=== PATIENT | male | born 1955 | race Caucasian/White ===

== ENCOUNTER 2020-08-24 18:15 | Inpatient (IN) | payer MEDICARE, OTHER ==
[~2020-08-24] VITALS: Ht 182.9 cm; Wt 87.1 kg
--- NOTE | 2020-08-24 18:42 | NUR ---
PT IS IN ROOM #2B. DR HARTMANN EVALUATED THE PT.
[2020-08-24] MEDS ORDERED: THIA100T13 PO (18:59)
[2020-08-24] MEDS ORDERED: LEVE500T9 PO (18:59)
[2020-08-24] MEDS ORDERED: LORA-258 PO (18:59)
[2020-08-24] MEDS ORDERED: ACET-2154 PO (18:59)
[2020-08-24] MEDS ORDERED: PSYLLIUM PO (18:59)
[2020-08-24] MEDS ORDERED: FOLIC ACID PO (18:59)
[2020-08-24] MEDS ORDERED: BENA20TA9 PO (18:59)
[2020-08-24] MEDS ORDERED: METO25TA6 PO (18:59)
[2020-08-24] MEDS ORDERED: DOCU100C36 PO (18:59)
[2020-08-24] MEDS ORDERED: CHOL1CRY2 PO (18:59)
[2020-08-24] MEDS ORDERED: MULT-594 PO (18:59)
[2020-08-24] MEDS ORDERED: BISA10SU11 RC (18:59)
[2020-08-24] MEDS ORDERED: [UNRECOGNIZED DRUG - OTHER] PO (18:59)
[2020-08-24] MEDS ORDERED: RISP1TAB97 PO (18:59)
[2020-08-24] MEDS ORDERED: MAGN400O6 PO (19:00)
[2020-08-24] MEDS ORDERED: TRAZ-182 PO (19:00)
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
[2020-08-24 19:03] LABS: *BILIRUBIN,URIN NEGATIVE (NEGATIVE); *BLOOD, URINE NEGATIVE (NEGATIVE); *CLARITY,URINE CLEAR (CLEAR); *COLOR,URINE LIGHT YELLOW (YELLOW); *KETONES,URINE NEGATIVE (NEGATIVE); *UROBILINOGEN,URINE 0.2 E.U./dl (NORMAL); LEUKOCYTE ESTERASE ,URINE NEGATIVE (NEGATIVE); NITRITE, URINE NEGATIVE (NEGATIVE); PH,URINE 5.5 (5.0-8.0); UGLUCOSE NEGATIVE (NEGATIVE)
[2020-08-24 19:09] LABS: *AMPHETAMINE, URINE NEGATIVE (NEGATIVE); *CANNABINOID, URINE NEGATIVE (NEGATIVE); *COCCAINE, URINE NEGATIVE (NEGATIVE); *OPIATE, URINE NEGATIVE (NEGATIVE); *PHENCYCLIDINE SCREEN,URINE NEGATIVE (NEGATIVE)
[2020-08-24 19:46] LABS: BASOPHILS # (AUTO) 0.1 K/uL (0.0-8.0); BASOPHILS % (AUTO) 0.7 % (0.0-2.0); EOSINOPHILS # (AUTO) 0.2 K/uL (0.0-0.7); EOSINOPHILS % (AUTO) 2.1 % (0.0-7.0); HEMATOCRIT 38.5 % (36.7-47.1); HEMOGLOBIN 12.8 g/dL (12.5-16.3); LYMPHOCYTES % (AUTO) 35.3 % (20.5-51.5); MEAN CORPUSCULAR HEMOGLOBIN 30.6 uug (23.8-33.4); MEAN CORPUSCULAR HGB CONC 33 g/dL (32.5-36.3); MEAN CORPUSCULAR VOLUME 92.2 fL (73.0-96.2); MONOCYTES # (AUTO) 0.6 K/uL (2.0-10.0); NEUTROPHILS # (AUTO) 4.6 K/uL (1.8-8.9); NEUTROPHILS % (AUTO) 54.9 % (38.5-71.5); PLATELET COUNT (AUTO) 243 K/uL (152-348); RED BLOOD CELL COUNT(AUTO) 4.17 MIL/uL (4.06-5.63); WHITE BLOOD COUNT (AUTO) 8.4 K/uL (3.6-10.2)
[2020-08-24 19:52] LABS: CARBON DIOXIDE 22 mmol/L (21-32); CHLORIDE 100 mmol/L (98-107); CREATININE 0.8 mg/dL (0.6-1.3); GLUCOSE 140 mg/dL (74-106); POTASSIUM 3.5 mmol/L (3.5-5.1); UREA NITROGEN, BLOOD 8 mg/dL (7-18)
[2020-08-24 19:57] LABS: ETHANOL 68 MG/DL (0-0)
[2020-08-24 19:58] LABS: ALANINE AMINOTRANSFERASE 20 U/L (16-63); ALKALINE PHOSPHATASE 74 U/L (50-136); ASPARTATE AMINOTRANSFERASE 28 U/L (15-37); BILIRUBIN,DIRECT 0.1 mg/dL (0.0-0.2); BILIRUBIN,TOTAL 0.3 mg/dL (0.2-1.0); TOTAL PROTEIN, SERUM 7.7 g/dL (6.4-8.2)
[2020-08-24 19:59] LABS: ACETAMINOPHEN < 2.0 ug/mL (10-30)
[2020-08-24 20:06] LABS: THYROID STIMULATING HORMONE 0.142 mIU/mL (0.358-3.740)
--- NOTE | 2020-08-24 22:19 | NUR ---
Report given to receiving nurse. Awaiting OK to transfer patient over to Room 145-C.
[2020-08-24] MEDS ORDERED: ACETAMINOPHEN 325 MG TABLET PO PRN (23:45)
[2020-08-24] MEDS ORDERED: BISACODYL 10 MG SUPP.RECT RC PRN (23:45)
[2020-08-24] MEDS ORDERED: MAGNESIUM HYDROXIDE 30 ML LIQUID UDC PO PRN (23:45)
--- NOTE | 2020-08-24 23:45 | NUR ---
GPS: Admitted to unit earlier a 65 yr.old male under the care of Dr. De La Cruz/ who was medically cleared in our E.R. Pt.is on a 72 hour hold for DTO/GD. Pt.is alert to self only. Confused,disoriented and with poor insight to present situation. Unable to say reason for hospitalization. Refuses to answer most questions during initial interview. Personal belongings checked for any contraband. Oriented to surroundings,pt's advisement and pt's rights booklet given. Unit rules explained. Safe environment provided. Bed alarm on for safety while in bed.
[2020-08-25] MEDS ORDERED: ACETAMINOPHEN 325 MG TABLET PO PRN (00:30)
[2020-08-25] MEDS ORDERED: MAGNESIUM HYDROXIDE 30 ML LIQUID UDC PO PRN (00:30)
[2020-08-25] MEDS ORDERED: MAG HYDROX/AL HYDROX/SIMETH 30 ML LIQUID UDC PO PRN (00:30)
[2020-08-25] MEDS ORDERED: TEMAZEPAM 7.5 MG CAPSULE PO PRN (00:30)
[2020-08-25] MEDS ORDERED: LORAZEPAM 0.5 MG TABLET PO PRN (00:30)
[2020-08-25 02:03] VITALS: BP 117/48
[2020-08-25 07:30] VITALS: BP 121/67
[2020-08-25] MEDS ORDERED: DOCUSATE SODIUM 250 MG CAPSULE PO SCH (09:00)
[2020-08-25] MEDS ORDERED: FOLIC ACID 1 MG TABLET PO SCH (09:00)
[2020-08-25] MEDS ORDERED: CHOLECALCIFEROL 1,000 UNIT TABLET PO SCH (09:00)
[2020-08-25] MEDS ORDERED: MULTIVITAMINS,THERAPEUTIC TABLET PO SCH (09:00)
[2020-08-25] MEDS ORDERED: BENAZEPRIL HCL 20 MG TABLET PO SCH (09:00)
[2020-08-25] MEDS ORDERED: THIAMINE HCL 100 MG TABLET PO SCH (09:00)
--- NOTE | 2020-08-25 09:49 | NUR ---
Firearms Report: Building Stonecutter completed and submitted a DOJ firearms report for 5150 grave disability and danger to others certifications. A copy of report has been placed in patient chart.
[2020-08-25] MEDS: levETIRAcetam 500 MG TABLET PO SCH ×2 (10:00→18:48)
[2020-08-25] MEDS: METOPROLOL TARTRATE 25 MG TABLET PO SCH ×2 (10:03→18:49)
[2020-08-25] MEDS: PSYLLIUM SEED PACKET PO SCH ×2 (10:09→18:48)
--- NOTE | 2020-08-25 11:06 | NUR ---
MITCHEL Family Contact: SW called and left a voicemail for patient's sister, Cristela ([phone]) to discuss treatment and discharge plan.
--- NOTE | 2020-08-25 11:06 | NUR ---
MITCHEL Initial Discharge Plan: Patient currently resides at [facility] [address] [place] [address] ) ). MITCHEL spoke with Kelly Mcdonnell at facility who stated that they are requesting for alternate SNF placement for the patient, however, if it is not possible they will accept the patient back. MITCHEL left a voicemail for patient's sister, Cristela ([phone]) to discuss treatment and discharge plan. MITCHEL will continue to work with patient, family, and MD to ensure a safe and proper discharge plan.
--- NOTE | 2020-08-25 11:17 | NUR ---
MITCHEL Facility Contact: MITCHEL spoke with Kelly eduardo at [facility] ) who stated that she spoke with her DON and they stated that patient is welcome back to facility upon discharge and canceled their requested on alternate placement.
--- NOTE | 2020-08-25 11:25 | NUR ---
Brief Substance Abuse Intervention: Patient was provided with a brief substance abuse intervention for alcohol abuse and smoking cigarettes, and referred to the following substance abuse programs: [facility] Substance Abuse Self-helpline ([phone]); [facility] [address] [place] [address] ([phone]); [address] [address] ([phone]); [facility] ([phone]); [facility] ([phone]); [facility] ([phone]); [facility] ([phone]).
[2020-08-25] MEDS: GABAPENTIN 100 MG CAPSULE PO SCH ×2 (15:19→18:48)
[2020-08-25 16:00] VITALS: BP 113/54
[2020-08-25] MEDS ORDERED: risperiDONE-M 0.5 MG TAB.RAPDIS PO SCH ×2 (17:00→21:00)
--- NOTE | 2020-08-25 18:00 | NUR ---
Pt is being transferred to ER. Pt is to remain on hold as per dr. De La Cruz. Report given to BERNA Guzman. Pt's hold and an advisement is with the patient.
--- NOTE | 2020-08-25 18:17 | NUR ---
Around 1700 pt was found in his room, on the floor on his left side. Pt appeared having seizure activity. Area was cleared of objects around the patient. Rapid respond was called. Pt stopped having seizure activity, breathing was non labored, VS 126/73, hr 63, O2 97%. pt was able to nod "yes" but was not talking. pt was moving his hands and feet. blood sugar 103. Dr. De La Cruz was called order for EKG, CT scan of the brain and cervical spine was obtained. pt was taken to ER.
[2020-08-25 18:49] VITALS: BP 126/73
--- NOTE | 2020-08-26 08:58 | NUR ---
GPS Transfer and Discharge Plan Note: Patient was transferred from MHU to Medical Floor yesterday 08/25/20 due to having a seizure. Patient current discharge plan is to return to [facility] [address] [place] [address] ) ). SW spoke with Kelly Mcdonnell at facility who confirmed patient is welcome back once stable. Patient is alert and oriented x2-3 and is aware and agreeable with his discharge plan. Patient denies suicidal or homicidal ideation. Patient presented with depressed mood and congruent affect. Patient will follow up with psychiatrist Dr. De La Cruz and Hand Cloth Folder Dr. Esquivel at [facility] ([phone]). Patient was provided with a brief substance abuse intervention for alcohol and smoking and referred to the following substance abuse programs: [facility] Substance Abuse Self-helpline ([phone]); [facility] [address] [place] [address] ([phone]); [facility] [address] [facility] [address] ([phone]); [facility] ([phone]); [facility] ([phone]); [facility] ([phone]); [facility] ([phone]). Patient has a sister, Cristela ([phone]) and this SW left a voicemail for her, unable to reach.
== END 2020-08-25 18:30 | disposition short-term general hospital (02) | DRG 885 ==
LOC: ER 18:20 → GPS 22:40
PROVIDERS: ADMIT Psychiatry & Neurology Psychosomatic Medicine; ATTEND Nurse Practitioner Acute Care
DX: F29 Unspecified psychosis not due to a substance or known physiological condition (principal); F01.50 Vascular dementia, unspecified severity, without behavioral disturbance, psychotic disturbance, mood disturbance, and anxiety; G92 Toxic encephalopathy; D64.9 Anemia, unspecified; G40.909 Epilepsy, unspecified, not intractable, without status epilepticus; E05.90 Thyrotoxicosis, unspecified without thyrotoxic crisis or storm; F10.10 Alcohol abuse, uncomplicated; J44.9 Chronic obstructive pulmonary disease, unspecified; I10 Essential (primary) hypertension; K70.30 Alcoholic cirrhosis of liver without ascites; F25.9 Schizoaffective disorder, unspecified; F32.9 Major depressive disorder, single episode, unspecified; Z20.822 Contact with and (suspected) exposure to COVID-19; Y90.3 Blood alcohol level of 60-79 mg/100 ml
CPT/HCPCS: 36415; 70450; 71045; 72125; 84443; 85025; 93005; G0480

== ENCOUNTER 2020-08-25 17:27 | Inpatient (IN) | payer MEDICARE, OTHER ==
[~2020-08-25] VITALS: Ht 182.9 cm; Wt 88.6 kg
[~2020-08-25 17:27] MED LIST: ACET-2154 PO; BENA20TA9 PO; BISA10SU11 RC; CHOL1CRY2 PO; DOCU100C36 PO; FOLIC ACID PO; LEVE500T9 PO; LORA-258 PO; MAGN400O6 PO; METO25TA6 PO; MULT-594 PO; PSYLLIUM PO; RISP1TAB97 PO; THIA100T13 PO; TRAZ-182 PO; [UNRECOGNIZED DRUG - OTHER] PO
--- NOTE | 2020-08-25 17:36 | NUR ---
pt came from mhu unit, s/p witnessed seizure while the pt was found on the floor. in er, no sign of distress, pt reluctant to answer questions, vss, c-spine collar on already.
--- NOTE | 2020-08-25 17:45 | NUR ---
c-spine collar removed per md order, based on the ct results.
[2020-08-25 17:57] LABS: BASOPHILS # (AUTO) 0.1 K/uL (0.0-8.0); BASOPHILS % (AUTO) 0.6 % (0.0-2.0); EOSINOPHILS # (AUTO) 0.1 K/uL (0.0-0.7); EOSINOPHILS % (AUTO) 1.1 % (0.0-7.0); HEMATOCRIT 40.7 % (36.7-47.1); HEMOGLOBIN 13.2 g/dL (12.5-16.3); LYMPHOCYTES % (AUTO) 22.3 % (20.5-51.5); MEAN CORPUSCULAR HEMOGLOBIN 30.4 uug (23.8-33.4); MEAN CORPUSCULAR HGB CONC 32 g/dL (32.5-36.3); MEAN CORPUSCULAR VOLUME 93.8 fL (73.0-96.2); MONOCYTES % (AUTO) 7.6 % (0.0-11.0); NEUTROPHILS # (AUTO) 9.1 K/uL (1.8-8.9); NEUTROPHILS % (AUTO) 68.4 % (38.5-71.5); PLATELET COUNT (AUTO) 244 K/uL (152-348); RED BLOOD CELL COUNT(AUTO) 4.34 MIL/uL (4.06-5.63); WHITE BLOOD COUNT (AUTO) 13.3 K/uL (3.6-10.2)
[2020-08-25 18:02] LABS: CARBON DIOXIDE 16 mmol/L (21-32); CHLORIDE 96 mmol/L (98-107); CREATININE 1.1 mg/dL (0.6-1.3); GLUCOSE 121 mg/dL (74-106); POTASSIUM 4.1 mmol/L (3.5-5.1); UREA NITROGEN, BLOOD 13 mg/dL (7-18)
[2020-08-25 18:04] LABS: ETHANOL < 3 MG/DL (0-0)
[2020-08-25 18:08] LABS: ALANINE AMINOTRANSFERASE 17 U/L (16-63); ALKALINE PHOSPHATASE 78 U/L (50-136); ASPARTATE AMINOTRANSFERASE 29 U/L (15-37); BILIRUBIN,DIRECT 0.1 mg/dL (0.0-0.2); BILIRUBIN,TOTAL 0.4 mg/dL (0.2-1.0); TOTAL PROTEIN, SERUM 7.8 g/dL (6.4-8.2)
[2020-08-25] MEDS ORDERED: IV NORMAL SALINE 1000 ML BAG IV ONE (18:15)
[2020-08-25 18:16] LABS: PHENOBARBITAL < 1.0 ug/mL (15.0-39.0); PHENYTOIN (DILANTIN) < 0.5 ug/mL (10.0-20.0); VALPROIC ACID < 3 ug/mL (50-100)
--- NOTE | 2020-08-25 18:33 | NUR ---
pt refuses dinner, but had a cup of apple juice.
--- NOTE | 2020-08-25 19:00 | NUR ---
Assumed care of patient from day shift BERNA Mccall. Patient lying in bed. Calm and pleasant. No behevioral issues noted at this time. Seizure precaution observed.
--- NOTE | 2020-08-25 19:42 | NUR ---
Report given to Tele unit BERNA Andrade. Patient will be admitted under FINISH MOLDER Christine Chris Seizure disorder in room 301B. Belonging list done.
--- NOTE | 2020-08-25 20:15 | NUR ---
Received patient from ED via gurney. Patient admitted for seizure under Jessica King NP. Patient is AAOx1-2, somewhat verbal when conversation is initiated. No s/s of acute distress noted at this time. Pt on RA denies SOB and pain. Right AC IV infiltrated and will attempt to place a new access. Seizure precautions in place, side rails padded, and suction available at bedside. Sitter at bedside for safety.
[2020-08-25 20:33] VITALS: BP 122/68
[2020-08-25] MEDS ORDERED: ZOLPIDEM 5 MG TABLET PO PRN (20:45)
[2020-08-25] MEDS ORDERED: Z GUARD REMEDY PASTE 57 GM TUBE TOP PRN (20:45)
[2020-08-25] MEDS ORDERED: MAGNESIUM HYDROXIDE 30 ML LIQUID UDC PO PRN (20:45)
[2020-08-25] MEDS ORDERED: HYDROCODONE/APAP 5-325MG TABLET PO PRN (20:45)
[2020-08-25] MEDS ORDERED: ACETAMINOPHEN 325 MG TABLET PO PRN (20:45)
[2020-08-25] MEDS ORDERED: ONDANSETRON 4 MG/2 ML VIAL IV PRN (20:45)
[2020-08-25] MEDS ORDERED: LORAZEPAM 2 MG/1 ML VIAL IV PRN (20:45)
[2020-08-25] MEDS ORDERED: levETIRAcetam IV 1,000 MG in IV DEXTROSE 5% 100 ML IV SCH (21:00)
[2020-08-25] MEDS: ENOXAPARIN SODIUM 40 MG/0.4 ML DISP.SYRIN SQ SCH (22:39)
[2020-08-26 00:15] VITALS: BP 133/64
[2020-08-26] MEDS: IV NS 1000 ML 1,000 ML IV PRN ×3 (00:53→23:29)
[2020-08-26 04:18] VITALS: BP 142/62
--- NOTE | 2020-08-26 07:15 | NUR ---
NO IV ACCESS PER NIGHT NURSE Pt pulled out his IV lines several times during the time, hard stick, took 3x to draw labs this am. RN classified advertising supervisor notified at this time. Dr. Sanz made aware that pt's Keppra will be missed at 0900.
--- NOTE | 2020-08-26 07:45 | NUR ---
Per BERNA Maldonado Secretary To The Vice President, midline will be inserted at 1300 today.
--- NOTE | 2020-08-26 09:03 | NUR ---
GPS Transfer and Discharge Plan Note: Patient was transferred from MHU to Medical Floor yesterday 08/25/20 due to having a seizure. Patient current discharge plan is to return to [facility] [address] [place] [address] ) ). SW spoke with Kelly Mcdonnell at facility who confirmed patient is welcome back once stable. Patient is alert and oriented x2-3 and is aware and agreeable with his discharge plan. Patient denies suicidal or homicidal ideation. Patient presented with depressed mood and congruent affect. Patient will follow up with psychiatrist Dr. De La Cruz and Patternmaker Plaster And Plastic Dr. Esquivel at [facility] ([phone]). Patient was provided with a brief substance abuse intervention for alcohol and smoking and referred to the following substance abuse programs: [facility] Substance Abuse Self-helpline ([phone]); [facility] [address] [place] [address] ([phone]); [facility] [address] [facility] [address] ([phone]); [facility] ([phone]); [facility] ([phone]); [facility] ([phone]); [facility] ([phone]). Patient has a sister, Cristela ([phone]) and this SW left a voicemail for her, unable to reach.
--- NOTE | 2020-08-26 09:09 | NUR ---
Verified with pharmacy that it is okay to give Keppra late after midline insertion at 1300, and keep same schedule.
--- NOTE | 2020-08-26 09:41 | NUR ---
Pt continues to be resting in bed, with no signs of acute distress. NO verbalizations of SI.HI. No unnecessary cords or wires near bed. Pt with no episodes of aggressive behavior, cooperative with care. Pending midline insertion. water attendant at bedside.
--- NOTE | 2020-08-26 11:00 | NUR ---
Per pharmacmy, route of administration for Keppra changed to PO.
[2020-08-26] MEDS: levETIRAcetam 500 MG TABLET PO SCH ×2 (11:34→21:57)
[2020-08-26 12:00] VITALS: BP 119/67
--- NOTE | 2020-08-26 12:45 | NUR ---
Midline RN able to insert Midline on LORRIE 18 G, flushing well. No signs of extravasation or infiltration. Dressing clean, dry and intact.
--- NOTE | 2020-08-26 12:58 | NUR ---
Pt is resting at this time, continued to be on 5150 hold until 08/27/20 1701 for GD and DTO. Patient is AAOx1-3, verbal and cooperative most of time. He does have occasional episodes of "snapping" and being slightly verbally abusive to RN and easily irritated. IVF now infusing as ordered on R UA 18 G midline. No s/s of acute distress noted at this time. Pt on RA denies SOB and pain. Seizure precautions in place, side rails padded, and suction available at bedside. linen room attendant at bedside for safety.
[2020-08-26 15:42] LABS: BASOPHILS % (AUTO) 0.5 % (0.0-2.0); EOSINOPHILS # (AUTO) 0.2 K/uL (0.0-0.7); HEMATOCRIT 39.4 % (36.7-47.1); HEMOGLOBIN 13.3 g/dL (12.5-16.3); LYMPHOCYTES % (AUTO) 22.9 % (20.5-51.5); MEAN CORPUSCULAR HEMOGLOBIN 31.3 uug (23.8-33.4); MEAN CORPUSCULAR HGB CONC 34 g/dL (32.5-36.3); MEAN CORPUSCULAR VOLUME 92.7 fL (73.0-96.2); MONOCYTES # (AUTO) 0.6 K/uL (2.0-10.0); MONOCYTES % (AUTO) 6.8 % (0.0-11.0); NEUTROPHILS # (AUTO) 5.9 K/uL (1.8-8.9); NEUTROPHILS % (AUTO) 67.8 % (38.5-71.5); PLATELET COUNT (AUTO) 241 K/uL (152-348); RED BLOOD CELL COUNT(AUTO) 4.25 MIL/uL (4.06-5.63); WHITE BLOOD COUNT (AUTO) 8.7 K/uL (3.6-10.2)
--- NOTE | 2020-08-26 15:52 | NUR ---
Pt started to be confused and started to act out, yelling at staff and demanding alcohol be given to him. Ativan 2 mg IV Push given and s/w Dr De La Cruz. Slightly effective. Dr De La Cruz assessed patient via telehealth and will put in orders.
[2020-08-26 15:58] LABS: CREATININE 0.9 mg/dL (0.6-1.3); MAGNESIUM 1.9 mg/dL (1.8-2.4); POTASSIUM 3.8 mmol/L (3.5-5.1)
[2020-08-26 16:00] VITALS: BP 130/62
[2020-08-26] MEDS ORDERED: GABAPENTIN 100 MG CAPSULE PO SCH (17:00)
[2020-08-26] MEDS: risperiDONE 0.5 MG TABLET PO SCH ×2 (17:13→21:00)
--- NOTE | 2020-08-26 20:00 | NUR ---
Received patient asleep in bed, arousable to deep touch. AAOx3. No s/s of acute distress noted at this time. Pt on RA denies SOB and pain. Right upper arm midline patent and intact. Sitter at bedside. Patient currently on 5150 hold for GD and DTO, expires 08/27 @ 1701. Patient is currently pleasant and engages in conversation when approached. Denies SI/HI. Safety measures and Seizure precautions in place.
[2020-08-26 20:07] VITALS: BP 145/72
[2020-08-26] MEDS: ENOXAPARIN SODIUM 40 MG/0.4 ML DISP.SYRIN SQ SCH (21:08)
[2020-08-26] MEDS ORDERED: MAGNESIUM HYDROXIDE 30 ML LIQUID UDC PO PRN (21:15)
[2020-08-26] MEDS ORDERED: BISACODYL 10 MG SUPP.RECT RC PRN (21:15)
[2020-08-26] MEDS ORDERED: ACETAMINOPHEN 325 MG TABLET PO SCH (21:15)
[2020-08-27] VITALS: BP 114/55
[2020-08-27 04:00] VITALS: BP 113/65
--- NOTE | 2020-08-27 06:09 | NUR ---
Patient slept 9 hours. No acute changes noted. VSS. Sitter remains at bedside.
[2020-08-27] MEDS ORDERED: METOPROLOL TARTRATE 25 MG TABLET PO SCH (09:00)
[2020-08-27] MEDS ORDERED: BENAZEPRIL HCL 20 MG TABLET PO SCH (09:00)
[2020-08-27] MEDS ORDERED: THIAMINE HCL 100 MG TABLET PO SCH (09:00)
[2020-08-27] MEDS ORDERED: levETIRAcetam 500 MG TABLET PO SCH (09:00)
[2020-08-27] MEDS ORDERED: CHOLECALCIFEROL 1,000 UNIT TABLET PO SCH (09:00)
[2020-08-27] MEDS ORDERED: DOCUSATE SODIUM 100 MG/10 ML LIQUID UDC PO SCH (09:00)
[2020-08-27] MEDS ORDERED: FOLIC ACID 1 MG TABLET PO SCH (09:00)
[2020-08-27] MEDS ORDERED: DOCUSATE SODIUM 100 MG CAPSULE PO SCH (09:00)
[2020-08-27] MEDS: METOPROLOL TARTRATE 25 MG TABLET PO SCH ×2 (09:00→20:32)
[2020-08-27] MEDS ORDERED: MULTIVITAMINS,THERAPEUTIC TABLET PO SCH (09:00)
[2020-08-27] MEDS: PSYLLIUM SEED PACKET PO SCH ×2 (09:23→17:20)
[2020-08-27] MEDS: levETIRAcetam 500 MG TABLET PO SCH ×2 (09:23→20:27)
[2020-08-27] MEDS: risperiDONE 0.5 MG TABLET PO SCH ×4 (09:23→20:27)
--- NOTE | 2020-08-27 10:00 | NUR ---
Received pt in assigned room in bed, A&Ox3, calm upon approach at this time, able to verbalize needs. No acute distress, no SOB. VSS at this time. Pt denies pain at this time. Due medication administered per order, pt adherent to medication regimen, no a/r noted. Right UA Midline patent and intact. Pt denies SI/HI/AH/VH. Pt able to verbally CFS. When asked how he was feeling, pt stated "Groovy". Safety measures and fall precautions in place. Call light and belongings within reach. Will continue to monitor. Addendum: 08/27/20 at 1639 by ERICKA FORTE RN RN Sitter at bedside for safety. Seizure precautions in place.
[2020-08-27 11:12] VITALS: BP 91/70
[2020-08-27] MEDS ORDERED: LORAZEPAM 1 MG TABLET PO PRN (13:30)
--- NOTE | 2020-08-27 13:45 | NUR ---
Dr. Lopez visited pt at bedside this afternoon with new order, will carry out.
--- NOTE | 2020-08-27 14:30 | NUR ---
Pt noted with episode of agitation and verbal aggression towards staff. Pt started yelling obscenities and demanded "a cold beer". This creative services writer and sitter explained to pt that pt is in a hospital and beer is not served here. Redirection attempts unsuccessful at this time. PRN Ativan administered per order, will monitor for effectiveness. Sitter at bedside. Seizure precautions in place. Continue to monitor.
[2020-08-27] MEDS ORDERED: RISP0.5T5 PO (15:33)
[2020-08-27] MEDS ORDERED: LEVE500T9 PO (15:33)
[2020-08-27 16:20] VITALS: BP 122/58
[2020-08-27] MEDS: IV NS 1000 ML 1,000 ML IV PRN (17:28)
--- NOTE | 2020-08-27 19:00 | NUR ---
EOSS: Pt in assigned room in bed, no acute distress, denies pain/discomfort at this time. VSS. Per Dr. Lopez, pt to be discharged to [facility] Mental Health Unit on a voluntary basis. Pt aware and willing, pt signed Voluntary Admission Behavioral Health form. Per Dr. Sanz, pt cleared medically for discharge. Pt remained calm for remainder of shift, sitter at bedside for pt safety, seizure precautions maintained. Safety measures and fall precautions maintained. Will endorse care to shiftman nurse.
--- NOTE | 2020-08-27 19:00 | NUR ---
RECEIVED PATIENT IN BED ALERT AWAKE, NO COMPLAIN OF PAIN, TELE MONITOR SINUS SHAHID. PATIENT CALM AND COOPERATIVE WITH CARE, CONT 1;1 SITTER. V/S STABLE.
[2020-08-27 20:29] VITALS: BP 151/68
[2020-08-27 20:32] VITALS: BP 151/68
[2020-08-27] MEDS: ENOXAPARIN SODIUM 40 MG/0.4 ML DISP.SYRIN SQ SCH (20:33)
--- NOTE | 2020-08-27 21:27 | NUR ---
PATIENT WAS DISCHARGE TO MHU UNIT, REPORT GIVEN TO LANG CORONEL, TOOK ALL BELONINGS, PATIENT IS IN FAIR BUT STABLE CONDITION. PATIENT REFUSED LOVENOX, AND METOPROLOL WAS HELD HR. 51.
== END 2020-08-27 21:25 | DRG 101 ==
LOC: ER 17:29 → TELE3 19:45
PROVIDERS: ADMIT Family Medicine; ATTEND Family Medicine
PROC: 05H533Z Insertion of Infusion Device into Right Subclavian Vein, Percutaneous Approach (ICD-10-PCS; principal; 2020-08-26)
PROC: B546ZZA Ultrasonography of Right Subclavian Vein, Guidance (ICD-10-PCS; 2020-08-26)
DX: G40.909 Epilepsy, unspecified, not intractable, without status epilepticus (principal); E87.2 Acidosis; E87.1 Hypo-osmolality and hyponatremia; F25.9 Schizoaffective disorder, unspecified; D72.829 Elevated white blood cell count, unspecified; E86.1 Hypovolemia; F01.50 Vascular dementia, unspecified severity, without behavioral disturbance, psychotic disturbance, mood disturbance, and anxiety; F32.9 Major depressive disorder, single episode, unspecified; I10 Essential (primary) hypertension; J44.9 Chronic obstructive pulmonary disease, unspecified; F10.10 Alcohol abuse, uncomplicated; K70.30 Alcoholic cirrhosis of liver without ascites; G31.2 Degeneration of nervous system due to alcohol; Y90.0 Blood alcohol level of less than 20 mg/100 ml
CPT/HCPCS: 36415; 80164; 80184; 83735; 84100; 84443; 85025; 85730; 93005; A4663; G0378; G0480; J1650; J1953; J2060; J7030; J7060

== ENCOUNTER 2020-08-27 21:52 | Inpatient (IN) | payer MEDICARE, OTHER ==
[~2020-08-27] VITALS: Ht 182.9 cm; Wt 87.5 kg
[~2020-08-27 21:52] MED LIST changes: -LORA-258 PO; +RISP0.5T5 PO; -RISP1TAB97 PO; -TRAZ-182 PO
[2020-08-27] MEDS ORDERED: MAGNESIUM HYDROXIDE 30 ML LIQUID UDC PO PRN (22:00)
[2020-08-27] MEDS ORDERED: MAG HYDROX/AL HYDROX/SIMETH 30 ML LIQUID UDC PO PRN (22:00)
--- NOTE | 2020-08-27 23:00 | NUR ---
Received patient from [facility] 3rd floor via wheelchair; patient reoriented to room and policies; safety maintained; assisted to meet hygiene needs; bed alarm on; plan of care initiated.
--- NOTE | 2020-08-28 05:00 | NUR ---
Dr Shine aware of admission and will reconcile meds.
--- NOTE | 2020-08-28 06:32 | NUR ---
pt slept well; pt slept for 6.3 hours. safety maintained; continue plan of care
[2020-08-28] MEDS ORDERED: BISACODYL 10 MG SUPP.RECT RC PRN (07:15)
[2020-08-28 07:30] VITALS: BP 131/65
[2020-08-28 07:30] LABS: BILIRUBIN,TOTAL 0.3 mg/dL (0.2-1.0); CREATININE 0.8 mg/dL (0.6-1.3); TOTAL PROTEIN, SERUM 6.9 g/dL (6.4-8.2)
[2020-08-28] MEDS: DOCUSATE SODIUM 250 MG CAPSULE PO SCH (09:48)
[2020-08-28] MEDS: PSYLLIUM SEED PACKET PO SCH ×2 (09:49→18:24)
[2020-08-28] MEDS: levETIRAcetam 500 MG TABLET PO SCH ×2 (09:49→20:43)
[2020-08-28] MEDS: MULTIVITAMINS,THERAPEUTIC TABLET PO SCH (09:49)
[2020-08-28] MEDS: CHOLECALCIFEROL 1,000 UNIT TABLET PO SCH (09:50)
[2020-08-28] MEDS: FOLIC ACID 1 MG TABLET PO SCH (09:50)
[2020-08-28] MEDS: THIAMINE HCL 100 MG TABLET PO SCH (09:50)
[2020-08-28] MEDS: METOPROLOL TARTRATE 25 MG TABLET PO SCH ×2 (13:22→18:24)
[2020-08-28] MEDS: BENAZEPRIL HCL 20 MG TABLET PO SCH (13:22)
[2020-08-28 15:26] VITALS: BP 119/68
[2020-08-28 20:00] VITALS: BP 172/68
[2020-08-28] MEDS: LORAZEPAM 1 MG TABLET PO PRN (20:43)
[2020-08-28] MEDS ORDERED: risperiDONE 0.25 MG TABLET PO SCH ×2 (21:00→21:52)
[2020-08-28] MEDS: TEMAZEPAM 7.5 MG CAPSULE PO PRN (23:54)
--- NOTE | 2020-08-29 06:30 | NUR ---
Composite Engineer received patient last night , awake and alert standing in the doorway of his room. This patient was isolative and unable to engage in any meaningful conversation. All questions were met with simple yes or no answer. Patient was restless and sitting in a dark corner of his room for a long period of time. Composite Engineer provided medications that were ordered , plus sleeping pill per patients request. Patient slept 6.45 hours. Continuing to monitor patient for safety and seizure precautions are in place. No behavioral issues at this time.
[2020-08-29 06:54] LABS: BASOPHILS # (AUTO) 0.1 K/uL (0.0-8.0); BASOPHILS % (AUTO) 0.7 % (0.0-2.0); EOSINOPHILS # (AUTO) 0.4 K/uL (0.0-0.7); EOSINOPHILS % (AUTO) 3.3 % (0.0-7.0); HEMATOCRIT 42.6 % (36.7-47.1); HEMOGLOBIN 14.3 g/dL (12.5-16.3); LYMPHOCYTES % (AUTO) 27.7 % (20.5-51.5); MEAN CORPUSCULAR HEMOGLOBIN 31.1 uug (23.8-33.4); MEAN CORPUSCULAR HGB CONC 34 g/dL (32.5-36.3); MEAN CORPUSCULAR VOLUME 92.9 fL (73.0-96.2); MONOCYTES # (AUTO) 0.8 K/uL (2.0-10.0); MONOCYTES % (AUTO) 7.7 % (0.0-11.0); NEUTROPHILS # (AUTO) 6.5 K/uL (1.8-8.9); NEUTROPHILS % (AUTO) 60.6 % (38.5-71.5); PLATELET COUNT (AUTO) 230 K/uL (152-348); RED BLOOD CELL COUNT(AUTO) 4.59 MIL/uL (4.06-5.63); WHITE BLOOD COUNT (AUTO) 10.8 K/uL (3.6-10.2)
[2020-08-29 07:14] LABS: THYROID STIMULATING HORMONE 0.832 mIU/mL (0.358-3.740)
[2020-08-29 07:30] VITALS: BP 116/46
[2020-08-29 07:38] LABS: BILIRUBIN,TOTAL 0.5 mg/dL (0.2-1.0); CREATININE 0.7 mg/dL (0.6-1.3); PHOSPHOROUS 3.6 mg/dL (2.5-4.9); POTASSIUM 4.3 mmol/L (3.5-5.1); TOTAL PROTEIN, SERUM 7.5 g/dL (6.4-8.2)
[2020-08-29 08:00] VITALS: BP 116/46
[2020-08-29] MEDS: DOCUSATE SODIUM 250 MG CAPSULE PO SCH (08:25)
[2020-08-29] MEDS: levETIRAcetam 500 MG TABLET PO SCH ×2 (08:26→21:11)
[2020-08-29] MEDS: CHOLECALCIFEROL 1,000 UNIT TABLET PO SCH (08:26)
[2020-08-29] MEDS: risperiDONE 0.5 MG TABLET PO SCH ×4 (08:27→21:12)
[2020-08-29] MEDS: FOLIC ACID 1 MG TABLET PO SCH (08:27)
[2020-08-29] MEDS: THIAMINE HCL 100 MG TABLET PO SCH (08:27)
[2020-08-29] MEDS: LORAZEPAM 1 MG TABLET PO PRN (08:27)
[2020-08-29] MEDS: PSYLLIUM SEED PACKET PO SCH ×2 (08:28→17:13)
[2020-08-29] MEDS: MULTIVITAMINS,THERAPEUTIC TABLET PO SCH (08:29)
[2020-08-29] MEDS: METOPROLOL TARTRATE 25 MG TABLET PO SCH ×2 (08:55→17:00)
[2020-08-29] MEDS: BENAZEPRIL HCL 20 MG TABLET PO SCH (08:56)
[2020-08-29 16:00] VITALS: BP 107/58
[2020-08-29 20:00] VITALS: BP 135/59
[2020-08-29] MEDS: TEMAZEPAM 7.5 MG CAPSULE PO PRN (21:12)
[2020-08-30] MEDS: LORAZEPAM 1 MG TABLET PO PRN (01:43)
[2020-08-30] MEDS: ACETAMINOPHEN 325 MG TABLET PO PRN (01:44)
--- NOTE | 2020-08-30 06:34 | NUR ---
Received patient up in the day room at the beginning of the shift. Awake and alert but slightly confused. As the night progressed, patients behavior became unpredictable and bizarre. Staff found patient laying on the floor in the day room with the blankets off of his bed, stating " I am going to sleep on the floor tonight. I like to sleep here". Mud Mixer reoriented patient to the situation and redirected him back to his bed. The patient was restless and requested medication to assist him to sleep. Total sleep hours were 3.30. Mud Mixer provided snacks and monitored patient for safety during the shift.
[2020-08-30 07:30] VITALS: BP 128/74
[2020-08-30 07:51] LABS: BASOPHILS # (AUTO) 0.1 K/uL (0.0-8.0); BASOPHILS % (AUTO) 0.5 % (0.0-2.0); EOSINOPHILS # (AUTO) 0.3 K/uL (0.0-0.7); EOSINOPHILS % (AUTO) 2.4 % (0.0-7.0); HEMATOCRIT 40.6 % (36.7-47.1); HEMOGLOBIN 13.5 g/dL (12.5-16.3); LYMPHOCYTES # (AUTO) 3.2 K/uL (20.0-40.0); LYMPHOCYTES % (AUTO) 30.3 % (20.5-51.5); MEAN CORPUSCULAR HEMOGLOBIN 30.9 uug (23.8-33.4); MEAN CORPUSCULAR HGB CONC 33 g/dL (32.5-36.3); MONOCYTES # (AUTO) 0.9 K/uL (2.0-10.0); MONOCYTES % (AUTO) 8.9 % (0.0-11.0); NEUTROPHILS # (AUTO) 6.1 K/uL (1.8-8.9); NEUTROPHILS % (AUTO) 57.9 % (38.5-71.5); PLATELET COUNT (AUTO) 220 K/uL (152-348); RED BLOOD CELL COUNT(AUTO) 4.36 MIL/uL (4.06-5.63); WHITE BLOOD COUNT (AUTO) 10.5 K/uL (3.6-10.2)
[2020-08-30 07:59] LABS: CREATININE 0.8 mg/dL (0.6-1.3); POTASSIUM 4.9 mmol/L (3.5-5.1)
--- NOTE | 2020-08-30 08:00 | NUR ---
received report from BERNA Escobar. All questions, comments, and concerns were addressed. Received patient resting quietly in his assigned bed. bed is in low and locked position. patient is arousable to name.
[2020-08-30] MEDS: CHOLECALCIFEROL 1,000 UNIT TABLET PO SCH (09:11)
[2020-08-30] MEDS: risperiDONE 0.5 MG TABLET PO SCH ×4 (09:11→20:07)
[2020-08-30] MEDS: DOCUSATE SODIUM 250 MG CAPSULE PO SCH (09:11)
[2020-08-30] MEDS: METOPROLOL TARTRATE 25 MG TABLET PO SCH ×2 (09:12→16:06)
[2020-08-30] MEDS: MULTIVITAMINS,THERAPEUTIC TABLET PO SCH (09:12)
[2020-08-30] MEDS: PSYLLIUM SEED PACKET PO SCH ×2 (09:12→16:06)
[2020-08-30] MEDS: BENAZEPRIL HCL 20 MG TABLET PO SCH (09:12)
[2020-08-30] MEDS: FOLIC ACID 1 MG TABLET PO SCH (09:12)
[2020-08-30] MEDS: levETIRAcetam 500 MG TABLET PO SCH ×2 (09:12→20:07)
[2020-08-30] MEDS: THIAMINE HCL 100 MG TABLET PO SCH (09:12)
--- NOTE | 2020-08-30 10:01 | NUR ---
Brief Substance Abuse Intervention: Patient was provided with a brief substance abuse intervention for alcohol abuse and smoking cigarettes, and referred to the following substance abuse programs: [facility] Substance Abuse Self-helpline ([phone]); [facility] [address] [place] [address] ([phone]); [address] [address] ([phone]); [facility] ([phone]); [facility] ([phone]); [facility] ([phone]); [facility] ([phone]).
--- NOTE | 2020-08-30 10:02 | NUR ---
MITCHEL Initial Discharge Plan: Patient currently resides at [facility] [address] [place] [address] ) ). MITCHEL spoke with Kelly Mcdonnell at facility who stated that they will accept the patient back upon discharge. MITCHEL will continue to work with patient, family, and MD to ensure a safe and proper discharge plan.
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
--- NOTE | 2020-08-30 10:40 | NUR ---
patient is alert and oriented. he is calm, cooperative, and has pleasant interaction with staff. patient is adherent with medication, no adverse reaction noted. dressed appropriately in his assigned clothing. denies SI/HI, denies AH/VH. patient is able to tolerate food and fluids. uses a front wheel walker for ambulation. patient encouraged to participate in the unit therapeutic milieu and groups.
[2020-08-30] MEDS ORDERED: TEMAZEPAM 15 MG CAPSULE PO PRN (11:45)
[2020-08-30 15:13] VITALS: BP 100/54
[2020-08-30 20:32] VITALS: BP 111/56
--- NOTE | 2020-08-31 06:31 | NUR ---
GPS: Remain calm and cooperative with meds and care. This patient was isolative and unable to engage in any meaningful conversation. All questions were met with simple yes or no answer, plus sleeping pill per patients request. Patient slept 5 hours. Continuing to monitor patient for safety and seizure precautions are in place. No behavioral issues at this time.
[2020-08-31 07:30] VITALS: BP 102/57
[2020-08-31] MEDS: FOLIC ACID 1 MG TABLET PO SCH (08:23)
[2020-08-31] MEDS: CHOLECALCIFEROL 1,000 UNIT TABLET PO SCH (08:23)
[2020-08-31] MEDS: levETIRAcetam 500 MG TABLET PO SCH ×2 (08:23→20:37)
[2020-08-31] MEDS: DOCUSATE SODIUM 250 MG CAPSULE PO SCH (08:23)
[2020-08-31] MEDS: METOPROLOL TARTRATE 25 MG TABLET PO SCH ×2 (08:24→16:20)
[2020-08-31] MEDS: THIAMINE HCL 100 MG TABLET PO SCH (08:24)
[2020-08-31] MEDS: BENAZEPRIL HCL 20 MG TABLET PO SCH (08:24)
[2020-08-31] MEDS: MULTIVITAMINS,THERAPEUTIC TABLET PO SCH (08:25)
[2020-08-31] MEDS: PSYLLIUM SEED PACKET PO SCH ×2 (08:25→16:21)
[2020-08-31] MEDS: risperiDONE 0.5 MG TABLET PO SCH ×4 (08:25→20:37)
--- NOTE | 2020-08-31 15:17 | NUR ---
patient is cooperative, and compliant to medication, care, no agitated behavior noted, denied suicidal thoughts. continue to monitor per unit protocol
[2020-08-31 16:00] VITALS: BP 142/72
[2020-08-31 20:27] VITALS: BP 121/64
--- NOTE | 2020-09-01 06:30 | NUR ---
GPS: Remain calm and cooperative with meds and care. patient is isolative and unable to engage in any meaningful conversation. All questions were met with simple yes or no answer, slept only 2.30 hrs through the night sleeping meds offered but patient refused. Continuing to monitor patient for safety. seizure precautions are in place. No behavioral issues at this time.
[2020-09-01 07:30] VITALS: BP 113/71
[2020-09-01] MEDS: PSYLLIUM SEED PACKET PO SCH ×2 (08:20→16:31)
[2020-09-01] MEDS: THIAMINE HCL 100 MG TABLET PO SCH (08:20)
[2020-09-01] MEDS: DOCUSATE SODIUM 250 MG CAPSULE PO SCH (08:20)
[2020-09-01] MEDS: MULTIVITAMINS,THERAPEUTIC TABLET PO SCH (08:20)
[2020-09-01] MEDS: BENAZEPRIL HCL 20 MG TABLET PO SCH (08:20)
[2020-09-01] MEDS: CHOLECALCIFEROL 1,000 UNIT TABLET PO SCH (08:20)
[2020-09-01] MEDS: FOLIC ACID 1 MG TABLET PO SCH (08:21)
[2020-09-01] MEDS: levETIRAcetam 500 MG TABLET PO SCH ×2 (08:21→20:34)
[2020-09-01] MEDS: risperiDONE 0.5 MG TABLET PO SCH ×4 (08:21→20:34)
[2020-09-01] MEDS: METOPROLOL TARTRATE 25 MG TABLET PO SCH ×3 (08:28→16:32)
[2020-09-01 16:00] VITALS: BP 119/71
[2020-09-01 20:30] VITALS: BP 111/49
[2020-09-01] MEDS: diphenhydrAMINE 50 MG CAPSULE PO SCH (20:34)
--- NOTE | 2020-09-02 06:43 | NUR ---
PT SLEPT 7.5 H. PT IN NO ACUTE DISTRESS. PRESCRIBED MEDICATION GIVEN AND PT TOLERATED IT WELL. PT VITAL SIGNS STABLE. PT COMPLIANT WITH CARE. SAFETY AND COMFORT PROVIDED. WILL ENDORSE TO INCOMING NURSE FOR CONTINUITY OF CARE.
[2020-09-02 07:30] VITALS: BP 124/64
[2020-09-02] MEDS: risperiDONE 0.5 MG TABLET PO SCH ×4 (08:45→21:05)
[2020-09-02] MEDS: CHOLECALCIFEROL 1,000 UNIT TABLET PO SCH (08:45)
[2020-09-02] MEDS: levETIRAcetam 500 MG TABLET PO SCH ×2 (08:45→21:03)
[2020-09-02] MEDS: DOCUSATE SODIUM 250 MG CAPSULE PO SCH (08:45)
[2020-09-02] MEDS: FOLIC ACID 1 MG TABLET PO SCH (08:46)
[2020-09-02] MEDS: MULTIVITAMINS,THERAPEUTIC TABLET PO SCH (08:46)
[2020-09-02] MEDS: METOPROLOL TARTRATE 25 MG TABLET PO SCH ×2 (08:46→16:18)
[2020-09-02] MEDS: BENAZEPRIL HCL 20 MG TABLET PO SCH (08:47)
[2020-09-02] MEDS: PSYLLIUM SEED PACKET PO SCH ×2 (08:48→16:18)
[2020-09-02] MEDS: THIAMINE HCL 100 MG TABLET PO SCH (08:49)
[2020-09-02 16:37] VITALS: BP 143/74
--- NOTE | 2020-09-02 19:55 | NUR ---
Patient compliant with medication. no signs of acute distress. able to make needs known. cooperative with care. vital signs stable. safety and comfort measures provided. will endorse to incoming shift.
[2020-09-02 20:31] VITALS: BP 111/53
[2020-09-02] MEDS: diphenhydrAMINE 50 MG CAPSULE PO SCH (21:03)
--- NOTE | 2020-09-03 04:42 | NUR ---
PATIENT ASLEEP BUT EASILY AROUSABLE, NO COMPLAIN OF PAIN. PATIENT COOPERATIVE WITH CARE, AND MEDICATION, CONT TO MONITOR.
[2020-09-03 07:30] VITALS: BP 135/60
--- NOTE | 2020-09-03 08:00 | NUR ---
Awake, Alert, oriented x 4, calm and compliant with care and taking of medication
[2020-09-03] MEDS: DOCUSATE SODIUM 250 MG CAPSULE PO SCH (08:43)
[2020-09-03] MEDS: FOLIC ACID 1 MG TABLET PO SCH (08:43)
[2020-09-03] MEDS: levETIRAcetam 500 MG TABLET PO SCH ×2 (08:44→20:31)
[2020-09-03] MEDS: METOPROLOL TARTRATE 25 MG TABLET PO SCH ×2 (08:44→16:54)
[2020-09-03] MEDS: BENAZEPRIL HCL 20 MG TABLET PO SCH (08:44)
[2020-09-03] MEDS: THIAMINE HCL 100 MG TABLET PO SCH (08:45)
[2020-09-03] MEDS: risperiDONE 0.25 MG TABLET PO SCH ×4 (08:45→20:31)
[2020-09-03] MEDS: MULTIVITAMINS,THERAPEUTIC TABLET PO SCH (08:45)
[2020-09-03] MEDS: CHOLECALCIFEROL 1,000 UNIT TABLET PO SCH (08:45)
[2020-09-03] MEDS: PSYLLIUM SEED PACKET PO SCH ×2 (08:49→16:54)
--- NOTE | 2020-09-03 13:00 | NUR ---
Stayed in his room. Interacts when engaged.
[2020-09-03 16:00] VITALS: BP 119/50
[2020-09-03] MEDS: diphenhydrAMINE 50 MG CAPSULE PO SCH (20:31)
[2020-09-03 20:40] VITALS: BP 126/88
[2020-09-04] MEDS: LORAZEPAM 1 MG TABLET PO PRN (01:03)
--- NOTE | 2020-09-04 06:42 | NUR ---
Patient was up a lot during the night. Wandering around and asking for " A ice cold beer". Patient gets more and more confused as the night progressed. Sleep hours were 4.15. Patient was unable to engage in meaningful conversation and gave only simple yes or no answers. No acute behavioral issues last night. Continuing to monitor for safety and to reorient patient as needed.
[2020-09-04 07:30] VITALS: BP 150/68
[2020-09-04] MEDS: levETIRAcetam 500 MG TABLET PO SCH ×2 (08:31→20:32)
[2020-09-04] MEDS: DOCUSATE SODIUM 250 MG CAPSULE PO SCH (08:31)
[2020-09-04] MEDS: FOLIC ACID 1 MG TABLET PO SCH (08:31)
[2020-09-04] MEDS: CHOLECALCIFEROL 1,000 UNIT TABLET PO SCH (08:31)
[2020-09-04] MEDS: BENAZEPRIL HCL 20 MG TABLET PO SCH (08:32)
[2020-09-04] MEDS: MULTIVITAMINS,THERAPEUTIC TABLET PO SCH (08:37)
[2020-09-04] MEDS: THIAMINE HCL 100 MG TABLET PO SCH (08:37)
[2020-09-04] MEDS: METOPROLOL TARTRATE 25 MG TABLET PO SCH ×2 (08:37→16:38)
[2020-09-04] MEDS: risperiDONE 0.25 MG TABLET PO SCH ×4 (08:37→20:31)
[2020-09-04] MEDS: PSYLLIUM SEED PACKET PO SCH ×2 (08:38→16:21)
[2020-09-04 16:00] VITALS: BP 125/68
--- NOTE | 2020-09-04 18:11 | NUR ---
Patient in bed, awake and alert , cooperative upon assessment, denies of any pain. Patient interacts during conversation. All needs met promptly. All due meds given per MD order. No s/s of distress. VS WNL. Will continue to monitor.
[2020-09-04 19:59] VITALS: BP 113/62
[2020-09-04] MEDS: diphenhydrAMINE 50 MG CAPSULE PO SCH (20:31)
[2020-09-05 07:30] VITALS: BP 115/48
--- NOTE | 2020-09-05 07:30 | NUR ---
Patient is received resting in bed awake alert and oriented times 4. Patient is calm and cooperative. Patient is compliant with care and medications. Safety measures in place. Will continue to monitor.
[2020-09-05] MEDS: BENAZEPRIL HCL 20 MG TABLET PO SCH (09:00)
[2020-09-05] MEDS: METOPROLOL TARTRATE 25 MG TABLET PO SCH ×2 (09:00→16:59)
[2020-09-05] MEDS: CHOLECALCIFEROL 1,000 UNIT TABLET PO SCH (09:09)
[2020-09-05] MEDS: MULTIVITAMINS,THERAPEUTIC TABLET PO SCH (09:09)
[2020-09-05] MEDS: FOLIC ACID 1 MG TABLET PO SCH (09:09)
[2020-09-05] MEDS: risperiDONE 0.25 MG TABLET PO SCH ×4 (09:10→20:24)
[2020-09-05] MEDS: THIAMINE HCL 100 MG TABLET PO SCH (09:10)
[2020-09-05] MEDS: PSYLLIUM SEED PACKET PO SCH ×2 (09:19→16:59)
[2020-09-05] MEDS: levETIRAcetam 500 MG TABLET PO SCH ×2 (09:19→20:24)
[2020-09-05] MEDS: DOCUSATE SODIUM 250 MG CAPSULE PO SCH (09:22)
[2020-09-05 15:45] VITALS: BP 104/68
--- NOTE | 2020-09-05 18:37 | NUR ---
Gave all medications as ordered. Patient compliant with medications. Safety measures implemented. Will endorse to next shift.
[2020-09-05] MEDS: diphenhydrAMINE 50 MG CAPSULE PO SCH (20:24)
[2020-09-05 20:30] VITALS: BP 118/60
[2020-09-05] MEDS: LORAZEPAM 1 MG TABLET PO PRN (22:58)
[2020-09-06] MEDS: ACETAMINOPHEN 325 MG TABLET PO PRN (01:19)
--- NOTE | 2020-09-06 04:37 | NUR ---
Received patient in the day room sitting alone. This patient does not interact with his peers and only seems to interact with the staff when they initiate contact. Patients confusion get more progresses as the night goes on and this content writer finds the patient up out of bed all night long. Patient makes multiple trips to the bathroom, goes in and out of the day room, spends time just sitting in a dark corner of his room and sometimes standing in the door way of his room. When asked if he needs anything his response is always " I do not know" or " Yes I want an ice cold beer." This content writer redirected patient to his bed and reoriented him to the situation of being in the hospital and the time of the night etc.. many times ,but the patient is forgetful and needs reinforcement. Frequent rounding done to ensure safety and assist provided when needed. Patient has been calm however and no behavior issues noted at this time.
[2020-09-06 07:30] VITALS: BP 110/54
--- NOTE | 2020-09-06 08:30 | NUR ---
MITCHEL Discharge Note: Patient will be discharged to residential facility [facility] [address] [place] [address] ) ). MITCHEL spoke with Kelly Mcdonnell at facility who confirmed patient is welcome back. Patient is alert and oriented x3 and is aware and agreeable with his discharge plan. Patient denies suicidal or homicidal ideation. Patient presents with euthymic mood and congruent affect. Patient will follow up with psychiatrist Dr. De La Cruz and Emergency Registrar Dr. Esquivel at [facility] ([phone]). Patient was provided with a brief substance abuse intervention for alcohol and smoking and referred to the following substance abuse programs: [facility] Substance Abuse Self-helpline ([phone]); [facility] [address] [place] [address] ([phone]); [place] [address] [facility] [address] ([phone]); [facility] ([phone]); [facility] ([phone]); [facility] ([phone]); [facility] ([phone]). Patient has a sister, Cristela ([phone]) and this SW left a voicemail for her, unable to reach.
[2020-09-06] MEDS: FOLIC ACID 1 MG TABLET PO SCH (08:52)
[2020-09-06] MEDS: DOCUSATE SODIUM 250 MG CAPSULE PO SCH (08:52)
[2020-09-06 09:00] VITALS: BP 105/57
[2020-09-06] MEDS: BENAZEPRIL HCL 20 MG TABLET PO SCH (09:00)
[2020-09-06] MEDS: levETIRAcetam 500 MG TABLET PO SCH (09:00)
[2020-09-06] MEDS: METOPROLOL TARTRATE 25 MG TABLET PO SCH (09:00)
[2020-09-06] MEDS: risperiDONE 0.25 MG TABLET PO SCH ×2 (09:03→12:31)
[2020-09-06] MEDS: THIAMINE HCL 100 MG TABLET PO SCH (09:03)
[2020-09-06] MEDS: MULTIVITAMINS,THERAPEUTIC TABLET PO SCH (09:03)
[2020-09-06] MEDS: PSYLLIUM SEED PACKET PO SCH (09:04)
[2020-09-06] MEDS: CHOLECALCIFEROL 1,000 UNIT TABLET PO SCH (09:05)
--- NOTE | 2020-09-06 13:44 | NUR ---
Patient discharged to [facility]. Patient alert and oriented x3. No signs of acute distress. Patient denies SI/HI. Patient denies AH/ VH. Patient denies of pain or discomfort. Vital signs stable. Discharge instructions given to patient and signed. Belongings accounted for and belongings list signed. ID band removed. Patient will follow-up with Dr. Sabrina De La Cruz (psychiatrist) and Dr. Rl Esquivel (reliability specialist) at [facility] ([phone]). Patient was provided with a brief substance abuse intervention for alcohol and smoking and referred to the following substance abuse programs: [facility] ([phone]); [facility] [address] [place] [address] ([phone]); [facility] ([phone]); [facility] ([phone]); [facility] ([phone]); [facility] ([phone]). Report given to BERNA Alvarez of [facility]. Patient left via ambulance.
== END 2020-09-06 13:30 | DRG 885 ==
LOC: GPS 21:52
PROVIDERS: ADMIT Psychiatry & Neurology Psychiatry; ATTEND Family Medicine
DX: F39 Unspecified mood [affective] disorder (principal); F01.50 Vascular dementia, unspecified severity, without behavioral disturbance, psychotic disturbance, mood disturbance, and anxiety; F10.229 Alcohol dependence with intoxication, unspecified; G92 Toxic encephalopathy; E87.1 Hypo-osmolality and hyponatremia; F10.239 Alcohol dependence with withdrawal, unspecified; F25.9 Schizoaffective disorder, unspecified; G40.909 Epilepsy, unspecified, not intractable, without status epilepticus; J44.9 Chronic obstructive pulmonary disease, unspecified; D72.829 Elevated white blood cell count, unspecified; E86.1 Hypovolemia; F32.9 Major depressive disorder, single episode, unspecified; F41.9 Anxiety disorder, unspecified; K74.60 Unspecified cirrhosis of liver; I10 Essential (primary) hypertension; Z73.6 Limitation of activities due to disability; F29 Unspecified psychosis not due to a substance or known physiological condition; Y90.9 Presence of alcohol in blood, level not specified; Z20.822 Contact with and (suspected) exposure to COVID-19
CPT/HCPCS: 36415; 83735; 84100; 84443; 85025; Q0163

== ENCOUNTER 2022-05-01 23:45 | Inpatient (IN) | payer MEDICARE, OTHER ==
[~2022-05-01] VITALS: Ht 172.7 cm; Wt 78.9 kg
--- NOTE | 2022-05-02 00:17 | NUR ---
PATIENT BIB [facility] FROM [facility] ON A 5150 HOLD FOR DTO AND GD TO BE MEDICALLY CLEARED TO BE ADMITTED TO [facility]. PER REPORT FROM TRANSPORT TEAM, PATIENT HAS BEEN AGGRESIVE TOWARD STAFF MEMBERS.
[2022-05-02 00:50] LABS: HEMATOCRIT 35.8 % (36.7-47.1); MEAN CORPUSCULAR HEMOGLOBIN 31.2 uug (23.8-33.4); MEAN CORPUSCULAR VOLUME 93.9 fL (73.0-96.2); PLATELET COUNT (AUTO) 239 K/uL (152-348)
[2022-05-02 01:00] LABS: CARBON DIOXIDE 27 mmol/L (21-32); CHLORIDE 107 mmol/L (98-107); CREATININE 0.8 mg/dL (0.6-1.3); GLUCOSE 92 mg/dL (74-106); POTASSIUM 3.9 mmol/L (3.5-5.1); UREA NITROGEN, BLOOD 11 mg/dL (7-18)
[2022-05-02 01:06] LABS: ALANINE AMINOTRANSFERASE 15 U/L (16-63); ALKALINE PHOSPHATASE 53 U/L (50-136); ASPARTATE AMINOTRANSFERASE 8 U/L (15-37); BILIRUBIN,DIRECT 0.1 mg/dL (0.0-0.2); BILIRUBIN,TOTAL 0.2 mg/dL (0.2-1.0); TOTAL PROTEIN, SERUM 6.5 g/dL (6.4-8.2)
[2022-05-02 01:10] LABS: THYROID STIMULATING HORMONE 0.624 mIU/mL (0.358-3.740)
[2022-05-02 01:21] LABS: ACETAMINOPHEN 31.6 ug/mL (10-30)
[2022-05-02 01:23] LABS: ETHANOL < 3 MG/DL (0-0)
[2022-05-02] MEDS ORDERED: THIA100T13 PO (02:10)
[2022-05-02] MEDS ORDERED: DOCU-141 PO (02:10)
[2022-05-02] MEDS ORDERED: FOLI1TAB94 PO (02:10)
[2022-05-02] MEDS ORDERED: MAGN400O6 PO (02:10)
[2022-05-02] MEDS ORDERED: LEVE1000 PO (02:10)
[2022-05-02] MEDS ORDERED: GABA300C PO (02:10)
[2022-05-02] MEDS ORDERED: BUSP5TAB3 PO (02:10)
[2022-05-02] MEDS ORDERED: RISP1TAB7 PO (02:10)
[2022-05-02] MEDS ORDERED: MEMA10TA PO (02:10)
[2022-05-02] MEDS ORDERED: LORA-258 PO (02:10)
[2022-05-02] MEDS ORDERED: MULT-213 PO (02:10)
[2022-05-02] MEDS ORDERED: METO25TA6 PO (02:10)
[2022-05-02] MEDS ORDERED: AMLO10TA4 PO (02:10)
[2022-05-02] MEDS ORDERED: RISP2TAB5 PO (02:10)
[2022-05-02] MEDS ORDERED: DONE10TA44 PO (02:10)
--- NOTE | 2022-05-02 02:34 | NUR ---
Pt. admitted to [facility] Unit room 137B, under care of Dr. De La Cruz and Dr. Reese. Report given to BERNA Stacy. Belongings List completed.
[2022-05-02] MEDS ORDERED: MAGNESIUM HYDROXIDE 30 ML LIQUID UDC PO PRN (03:00)
[2022-05-02] MEDS ORDERED: MAG HYDROX/AL HYDROX/SIMETH 30 ML LIQUID UDC PO PRN (03:00)
[2022-05-02] MEDS ORDERED: ACETAMINOPHEN 325 MG TABLET PO PRN (03:00)
[2022-05-02 03:27] VITALS: BP 139/91
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
[2022-05-02 07:30] VITALS: BP 133/61
[2022-05-02] MEDS ORDERED: risperiDONE 1 MG TABLET PO SCH (09:30)
[2022-05-02] MEDS: risperiDONE 2 MG TABLET PO SCH ×2 (09:53→20:24)
[2022-05-02] MEDS: busPIRone 5 MG TABLET PO SCH ×2 (12:59→16:53)
--- NOTE | 2022-05-02 16:32 | NUR ---
Patient is withdrawn, isolative, depressed, cooperative with nursing care, and compliant with medications. Patient requires minimal assistance with ADL. Emotional support provided. Fall and safety precautions implemented.
[2022-05-02] MEDS: MEMANTINE HCL 10 MG TABLET PO SCH (16:53)
[2022-05-02 16:59] VITALS: BP 154/66
[2022-05-02] MEDS ORDERED: ACETAMINOPHEN 325 MG TABLET-SA PATIENTS-PAIN ONLY PO SCH (18:45)
[2022-05-02] MEDS: levETIRAcetam 500 MG TABLET PO SCH (20:24)
[2022-05-02] MEDS: AMLODIPINE 10 MG TABLET PO SCH (20:25)
[2022-05-02 21:06] VITALS: BP 161/68
--- NOTE | 2022-05-02 21:06 | NUR ---
GPS: Pt. is compliant with his bedtime meds. No aggressive behavior noted. Confused and disoriented. Poor insight to present situation. Reality re-orientation provided. Safety emphasized.
[2022-05-02] MEDS: GABAPENTIN 300 MG CAPSULE PO SCH (21:20)
[2022-05-02] MEDS: TEMAZEPAM 7.5 MG CAPSULE PO PRN (21:34)
[2022-05-03] MEDS: GABAPENTIN 300 MG CAPSULE PO SCH ×3 (06:02→21:29)
[2022-05-03 07:30] VITALS: BP 138/56
[2022-05-03] MEDS: levETIRAcetam 500 MG TABLET PO SCH ×2 (08:33→20:20)
[2022-05-03] MEDS: MEMANTINE HCL 10 MG TABLET PO SCH ×2 (08:33→16:52)
[2022-05-03] MEDS: MULTIVIT, IRON, MIN NO. 8, FA TABLET PO SCH (08:33)
[2022-05-03] MEDS: DOCUSATE SODIUM 250 MG CAPSULE PO SCH (08:33)
[2022-05-03] MEDS: DONEPEZIL 10 MG TABLET PO SCH (08:33)
[2022-05-03] MEDS: THIAMINE HCL 100 MG TABLET PO SCH (08:33)
[2022-05-03] MEDS: risperiDONE 2 MG TABLET PO SCH ×2 (08:34→20:19)
[2022-05-03] MEDS: FOLIC ACID 1 MG TABLET PO SCH (08:34)
[2022-05-03] MEDS: busPIRone 5 MG TABLET PO SCH ×2 (08:34→13:30)
[2022-05-03] MEDS: AMLODIPINE 10 MG TABLET PO SCH (13:30)
--- NOTE | 2022-05-03 16:01 | NUR ---
Patient is withdrawn, isolative, quiet, depressed, compliant with medications, cooperative with nursing care. A/O X 2 to person, place. Patient requires minimal assistance with ADL. Patient is encourage to verbalize concerns. Fall and safety precautions implemented.
[2022-05-03 16:26] VITALS: BP 116/61
[2022-05-03] MEDS ORDERED: busPIRone 10 MG TABLET PO SCH (17:00)
[2022-05-03 20:13] VITALS: BP 144/72
[2022-05-03] MEDS: LORAZEPAM 0.5 MG TABLET PO PRN (21:45)
[2022-05-03] MEDS: TEMAZEPAM 7.5 MG CAPSULE PO PRN (23:18)
[2022-05-04] MEDS: GABAPENTIN 300 MG CAPSULE PO SCH ×3 (06:17→21:33)
--- NOTE | 2022-05-04 06:22 | NUR ---
GPS: Pt. had no sleep the whole night/shift. He was confused,disoriented and disorganized. Sleeping pill was given but was ineffective. Pt. was easily irritable at times when being re-directed. Denied AH/VH when asked. Now resting in bed but remains awake. Safety emphasized. Will continue to monitor.
[2022-05-04] MEDS: DOCUSATE SODIUM 250 MG CAPSULE PO SCH (08:55)
[2022-05-04] MEDS: THIAMINE HCL 100 MG TABLET PO SCH (08:55)
[2022-05-04] MEDS: levETIRAcetam 500 MG TABLET PO SCH ×2 (08:55→20:37)
[2022-05-04] MEDS: MEMANTINE HCL 10 MG TABLET PO SCH ×2 (08:56→17:26)
[2022-05-04] MEDS: risperiDONE 2 MG TABLET PO SCH ×2 (08:56→20:37)
[2022-05-04] MEDS: FOLIC ACID 1 MG TABLET PO SCH (08:56)
[2022-05-04] MEDS: MULTIVIT, IRON, MIN NO. 8, FA TABLET PO SCH (08:56)
[2022-05-04] MEDS: DONEPEZIL 10 MG TABLET PO SCH (08:56)
[2022-05-04] MEDS: AMLODIPINE 10 MG TABLET PO SCH (08:57)
[2022-05-04] MEDS: OXCARBAZEPINE 150 MG TABLET PO SCH ×2 (09:01→17:26)
--- NOTE | 2022-05-04 11:22 | NUR ---
MITCHEL Initial Discharge Note: Pt currently resides at [facility] [address] [place] [address]([phone]). MITCHEL will contact Theron eduardo at [facility] to discuss pt's return to their facility upon discharge. MITCHEL will contact pt's sister, Cristela ([phone]) to discuss pt's discharge plan. MITCHEL will continue to work with pt, family and MD to ensure a safe and proper discharge plan.
--- NOTE | 2022-05-04 11:54 | NUR ---
Firearms Report: Multimedia Specialist completed and submitted a DOJ firearms report for 5150 a danger to others and grave disability certifications. A copy of report has been placed in patient chart.
[2022-05-04] MEDS ORDERED: risperiDONE 1 MG TABLET PO SCH (13:00)
--- NOTE | 2022-05-04 14:23 | NUR ---
MITCHEL Family Contact Note: MITCHEL contacted pt's sister, Cristela ([phone]) and left a voicemail for a call back regarding pt's discharge plan. MITCHEL provided MITCHEL's contact number as well as nursing station contact number.
--- NOTE | 2022-05-04 15:09 | NUR ---
Received patient sleeping in his room. A/O X 2 to person, place. Patient is withdrawn, confused, forgetful, cooperative with nursing care, and compliant with medications. Patient is encourage to verbalize feelings and emotions. Fall and safety precautions implemented.
[2022-05-04 20:14] VITALS: BP 132/76
--- NOTE | 2022-05-04 20:44 | NUR ---
GPS: Remains confused,disoriented and disorganized. Poor insight to present situation. Has labile mood. Easily irritable when approached at times by staff. Re-directed prn. Safety emphasized. Will continue to monitor.
[2022-05-04] MEDS: TEMAZEPAM 7.5 MG CAPSULE PO PRN (22:07)
[2022-05-05] MEDS: GABAPENTIN 300 MG CAPSULE PO SCH ×3 (05:51→21:34)
[2022-05-05 07:30] VITALS: BP 141/67
[2022-05-05] MEDS: THIAMINE HCL 100 MG TABLET PO SCH (08:23)
[2022-05-05] MEDS: MULTIVIT, IRON, MIN NO. 8, FA TABLET PO SCH (08:23)
[2022-05-05] MEDS: FOLIC ACID 1 MG TABLET PO SCH (08:23)
[2022-05-05] MEDS: OXCARBAZEPINE 150 MG TABLET PO SCH ×2 (08:23→17:18)
[2022-05-05] MEDS: DOCUSATE SODIUM 250 MG CAPSULE PO SCH (08:23)
[2022-05-05] MEDS: risperiDONE 2 MG TABLET PO SCH ×3 (08:24→20:32)
[2022-05-05] MEDS: levETIRAcetam 500 MG TABLET PO SCH ×2 (08:24→20:31)
[2022-05-05] MEDS: DONEPEZIL 10 MG TABLET PO SCH (08:24)
[2022-05-05] MEDS: AMLODIPINE 10 MG TABLET PO SCH (08:24)
[2022-05-05] MEDS: MEMANTINE HCL 10 MG TABLET PO SCH ×2 (08:29→17:18)
--- NOTE | 2022-05-05 09:08 | NUR ---
MITCHEL Discharge Update: MITCHEL spoke with Theron from [facility] ([phone]) located at [address] [facility] [address] regarding pt's return. Theron stated the admissions team cannot accept the pt back due to his behavior. MITCHEL informed pt's psychiatrist. MITCHEL will refer pt to [facility] per psychiatrist.
[2022-05-05] MEDS ORDERED: risperiDONE 1 MG TABLET PO SCH (13:00)
--- NOTE | 2022-05-05 16:22 | NUR ---
Received patient confused,disoriented and disorganized. Poor insight to present situation and poor judgement Has labile mood. Easily get irritable when approached . refused to attend in group activity ,will continue close monitoring.
[2022-05-05 17:12] VITALS: BP 119/62
[2022-05-05] MEDS: LORAZEPAM 0.5 MG TABLET PO PRN (21:28)
--- NOTE | 2022-05-05 21:29 | NUR ---
GPS: PATIENT IS AGITATED. ATIVAN 0.5 MG PO GIVEN FOR AGITATION.
[2022-05-05 21:42] VITALS: BP 131/65
[2022-05-06] MEDS: TEMAZEPAM 7.5 MG CAPSULE PO PRN (00:10)
--- NOTE | 2022-05-06 06:10 | NUR ---
GPS:Remain calm and cooperative with meds and care. A/O X 2 to person, place. Patient is withdrawn, confused, forgetful. Patient is encourage to verbalize feelings and emotions. Fall and safety precautions implemented.took shower this morning. slept 4.45 hrs through the night.
[2022-05-06] MEDS: GABAPENTIN 300 MG CAPSULE PO SCH ×3 (06:14→21:43)
[2022-05-06 07:43] VITALS: BP 131/69
[2022-05-06] MEDS: DOCUSATE SODIUM 250 MG CAPSULE PO SCH (08:22)
[2022-05-06] MEDS: levETIRAcetam 500 MG TABLET PO SCH ×2 (08:22→20:30)
[2022-05-06] MEDS: DONEPEZIL 10 MG TABLET PO SCH (08:22)
[2022-05-06] MEDS: THIAMINE HCL 100 MG TABLET PO SCH (08:22)
[2022-05-06] MEDS: OXCARBAZEPINE 150 MG TABLET PO SCH ×2 (08:23→17:13)
[2022-05-06] MEDS: MULTIVIT, IRON, MIN NO. 8, FA TABLET PO SCH (08:23)
[2022-05-06] MEDS: FOLIC ACID 1 MG TABLET PO SCH (08:23)
[2022-05-06] MEDS: risperiDONE 2 MG TABLET PO SCH ×3 (08:23→20:29)
[2022-05-06] MEDS: AMLODIPINE 10 MG TABLET PO SCH (08:24)
[2022-05-06] MEDS: MEMANTINE HCL 10 MG TABLET PO SCH ×2 (08:26→17:12)
[2022-05-06 16:21] VITALS: BP 105/64
[2022-05-06 20:00] VITALS: BP 136/66
[2022-05-07] MEDS: TEMAZEPAM 7.5 MG CAPSULE PO PRN ×2 (00:18→23:34)
[2022-05-07] MEDS: GABAPENTIN 300 MG CAPSULE PO SCH ×3 (05:54→23:06)
--- NOTE | 2022-05-07 06:27 | NUR ---
GPS: Remain coperative with meds and care. assisted with adl's. slept 045 minutes only. restoril 7.5 mg po given.continue plan of care.
[2022-05-07 08:27] VITALS: BP 141/75
[2022-05-07] MEDS: MULTIVIT, IRON, MIN NO. 8, FA TABLET PO SCH (09:04)
[2022-05-07] MEDS: DONEPEZIL 10 MG TABLET PO SCH (09:04)
[2022-05-07] MEDS: THIAMINE HCL 100 MG TABLET PO SCH (09:04)
[2022-05-07] MEDS: MEMANTINE HCL 10 MG TABLET PO SCH ×2 (09:04→16:56)
[2022-05-07] MEDS: DOCUSATE SODIUM 250 MG CAPSULE PO SCH (09:04)
[2022-05-07] MEDS: AMLODIPINE 10 MG TABLET PO SCH (09:04)
[2022-05-07] MEDS: levETIRAcetam 500 MG TABLET PO SCH ×2 (09:05→20:39)
[2022-05-07] MEDS: risperiDONE 2 MG TABLET PO SCH ×3 (09:05→20:39)
[2022-05-07] MEDS: FOLIC ACID 1 MG TABLET PO SCH (09:08)
[2022-05-07] MEDS: OXCARBAZEPINE 150 MG TABLET PO SCH ×2 (10:52→16:56)
[2022-05-07 16:07] VITALS: BP 144/76
[2022-05-07 20:01] VITALS: BP 134/61
--- NOTE | 2022-05-07 20:30 | NUR ---
received patient in his room sitting in his bed. he is noted A/O x 1 to 2. he is noted isolative and withdrawn. he has poor eye contact. he is fixed on food. he stated, "I am hungry". he is unreliable historian. he was given PO fluids and snacks. he is reassured for his safety. safety and fall precautions are in place. his V/S are stable. will continue to monitor.
[2022-05-08] MEDS: GABAPENTIN 300 MG CAPSULE PO SCH ×3 (05:55→23:06)
--- NOTE | 2022-05-08 06:37 | NUR ---
patient slept for approx 5. hrs through the night. he is noted less suspicious, less anxious and less restless. he is able to comply with medication regiment diet and plan of care.
[2022-05-08 07:46] VITALS: BP 151/85
[2022-05-08] MEDS: OXCARBAZEPINE 150 MG TABLET PO SCH (08:32)
[2022-05-08] MEDS: MULTIVIT, IRON, MIN NO. 8, FA TABLET PO SCH (08:32)
[2022-05-08] MEDS: DOCUSATE SODIUM 250 MG CAPSULE PO SCH (08:32)
[2022-05-08] MEDS: risperiDONE 2 MG TABLET PO SCH ×3 (08:33→20:52)
[2022-05-08] MEDS: THIAMINE HCL 100 MG TABLET PO SCH (08:34)
[2022-05-08] MEDS: FOLIC ACID 1 MG TABLET PO SCH (08:34)
[2022-05-08] MEDS: DONEPEZIL 10 MG TABLET PO SCH (08:34)
[2022-05-08] MEDS: levETIRAcetam 500 MG TABLET PO SCH ×2 (08:34→20:52)
[2022-05-08] MEDS: AMLODIPINE 10 MG TABLET PO SCH (08:35)
[2022-05-08] MEDS: MEMANTINE HCL 10 MG TABLET PO SCH ×2 (08:36→16:36)
[2022-05-08] MEDS: LORAZEPAM 0.5 MG TABLET PO SCH ×2 (12:15→16:36)
[2022-05-08] MEDS: OXCARBAZEPINE 300 MG TABLET PO SCH ×2 (12:15→16:36)
--- NOTE | 2022-05-08 12:42 | NUR ---
SNF Referral: SW faxed patient's referral packet including: History and Physical, Consultation, Progress Notes, Medication List and Labs to the following facilities for review and possible fci placement: [facility] [address] [address] ([phone]) and spoke with Gisel eduardo ([phone]).
[2022-05-08 15:48] VITALS: BP 110/58
--- NOTE | 2022-05-08 17:19 | NUR ---
Received patient is awake and responding to his name, isolative and withdrawn in his room, no interactions with peers, low energy level, depressed mood and blunted affect, compliant with his medications.ambulatory with FWW self care, but other times becomes hopeless, withdrawn, laying down on his bed, unable to formulate a viable plan for self care, poor grooming, continue to monitor for safety, continue with treatment
[2022-05-08 20:30] VITALS: BP 121/85
[2022-05-09] MEDS: TEMAZEPAM 7.5 MG CAPSULE PO PRN (02:08)
[2022-05-09] MEDS: GABAPENTIN 300 MG CAPSULE PO SCH ×3 (06:21→21:17)
[2022-05-09 07:34] VITALS: BP 123/52
[2022-05-09] MEDS: levETIRAcetam 500 MG TABLET PO SCH ×2 (08:26→20:31)
[2022-05-09] MEDS: OXCARBAZEPINE 300 MG TABLET PO SCH (08:26)
[2022-05-09] MEDS: MULTIVIT, IRON, MIN NO. 8, FA TABLET PO SCH (08:27)
[2022-05-09] MEDS: LORAZEPAM 0.5 MG TABLET PO SCH ×3 (08:27→17:07)
[2022-05-09] MEDS: DONEPEZIL 10 MG TABLET PO SCH (08:27)
[2022-05-09] MEDS: THIAMINE HCL 100 MG TABLET PO SCH (08:27)
[2022-05-09] MEDS: MEMANTINE HCL 10 MG TABLET PO SCH ×2 (08:27→17:07)
[2022-05-09] MEDS: risperiDONE 2 MG TABLET PO SCH ×3 (08:27→20:31)
[2022-05-09] MEDS: AMLODIPINE 10 MG TABLET PO SCH (08:28)
[2022-05-09] MEDS: DOCUSATE SODIUM 250 MG CAPSULE PO SCH (08:28)
[2022-05-09] MEDS: FOLIC ACID 1 MG TABLET PO SCH (08:28)
[2022-05-09 11:20] LABS: HEMATOCRIT 38.4 % (36.7-47.1); MEAN CORPUSCULAR HEMOGLOBIN 31.2 uug (23.8-33.4); MEAN CORPUSCULAR VOLUME 92.2 fL (73.0-96.2); PLATELET COUNT (AUTO) 259 K/uL (152-348)
[2022-05-09 11:35] LABS: BILIRUBIN,TOTAL 0.2 mg/dL (0.2-1.0); CREATININE 0.7 mg/dL (0.6-1.3); POTASSIUM 3.9 mmol/L (3.5-5.1); TOTAL PROTEIN, SERUM 7.2 g/dL (6.4-8.2)
[2022-05-09] MEDS: BENZTROPINE MESYLATE 0.5 MG TABLET PO SCH ×3 (11:40→17:07)
--- NOTE | 2022-05-09 14:35 | NUR ---
Received patient sleeping in his room. A/O X 2 to person, place. Patient is withdrawn, isolative, quiet, irritable at times. Patient requires minimal assistance with ADL. Patient is encourage to verbalize concerns. Fall and safety precautions implemented.
[2022-05-09 15:58] VITALS: BP 115/54
[2022-05-09 19:58] VITALS: BP 127/66
--- NOTE | 2022-05-09 20:53 | NUR ---
GPS: Remains compliant with his scheduled meds. Safety emphasized. No aggressive behavior noted. Denies AH/VH. Seizure precautions observed.
[2022-05-10] MEDS: TEMAZEPAM 7.5 MG CAPSULE PO PRN (01:56)
[2022-05-10] MEDS: LORAZEPAM 0.5 MG TABLET PO PRN (04:00)
--- NOTE | 2022-05-10 04:07 | NUR ---
GPS: Pt.has been awake since earlier. Sleeping pill given earlier was ineffective. Pt.is anxious,needy and easily irritable when being re-directed. Frequently asking for food/snacks. Given bedtime snacks already last night but keeps asking for more. Stands by the exit doors and waits for someone to go in. Unit rules explained. AWOL precautions observed. Explained the importance of following unit rules and re-direction from staff. No aggressive behavior noted. Ativan 0.5mg given PO. Will monitor effectiveness.
[2022-05-10] MEDS: GABAPENTIN 300 MG CAPSULE PO SCH ×3 (05:37→21:16)
[2022-05-10 07:55] VITALS: BP 140/67
[2022-05-10] MEDS: BENZTROPINE MESYLATE 0.5 MG TABLET PO SCH ×3 (08:20→16:59)
[2022-05-10] MEDS: LORAZEPAM 0.5 MG TABLET PO SCH (08:20)
[2022-05-10] MEDS: DONEPEZIL 10 MG TABLET PO SCH (08:21)
[2022-05-10] MEDS: levETIRAcetam 500 MG TABLET PO SCH ×2 (08:21→20:13)
[2022-05-10] MEDS: FOLIC ACID 1 MG TABLET PO SCH (08:21)
[2022-05-10] MEDS: THIAMINE HCL 100 MG TABLET PO SCH (08:21)
[2022-05-10] MEDS: MEMANTINE HCL 10 MG TABLET PO SCH ×2 (08:21→16:59)
[2022-05-10] MEDS: DOCUSATE SODIUM 250 MG CAPSULE PO SCH (08:21)
[2022-05-10] MEDS: MULTIVIT, IRON, MIN NO. 8, FA TABLET PO SCH (08:21)
[2022-05-10] MEDS: risperiDONE 2 MG TABLET PO SCH ×3 (08:21→20:13)
[2022-05-10] MEDS: AMLODIPINE 10 MG TABLET PO SCH (08:22)
[2022-05-10] MEDS ORDERED: OXCARBAZEPINE 300 MG TABLET PO SCH (09:00)
[2022-05-10] MEDS: LORAZEPAM 1 MG TABLET PO SCH ×2 (12:33→16:59)
--- NOTE | 2022-05-10 14:38 | NUR ---
Patient is confused, disoriented, forgetful, disorganized, tries to drink mouth wash and eat heena in the activity room. Patient states "I did it because I'm hungry" Patient is disheveled and collects food containers in his room. Patient is compliant with medications. Patient gets aggressive when things are taken from him such as bottles or hygiene products. Patient needs to be supervised because he has poor insight and impulse control. Patient is encourage to verbalize concerns. Fall and safety precautions implemented.
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
[2022-05-10] MEDS: OXCARBAZEPINE 150 MG TABLET PO SCH (16:59)
[2022-05-10 17:09] VITALS: BP 134/66
--- NOTE | 2022-05-10 20:30 | NUR ---
Received patient in his room in bed. he is noted awake A/O x 1. he is unsteady on his walk. Patient is a poor historian. he is tangental. his speech is disorganized and he is forgetful. he stated, "I need to go, i need to go". but he does not know where he needs to go. All his needs were met. bathroom and snacks. patient requires reality orientation. he is reassured for his safety, safety and fall precautions are in place. patient was given PO FLUIDS AND SNACKS. his V/S are stable. will continue to monitor.
[2022-05-10 20:50] VITALS: BP 137/74
[2022-05-11] MEDS: TEMAZEPAM 7.5 MG CAPSULE PO PRN (02:29)
[2022-05-11] MEDS: GABAPENTIN 300 MG CAPSULE PO SCH ×4 (06:07→20:22)
[2022-05-11 07:41] VITALS: BP 130/61
[2022-05-11] MEDS: levETIRAcetam 500 MG TABLET PO SCH ×2 (09:01→20:22)
[2022-05-11] MEDS: OXCARBAZEPINE 150 MG TABLET PO SCH (09:01)
[2022-05-11] MEDS: risperiDONE 2 MG TABLET PO SCH ×3 (09:01→20:22)
[2022-05-11] MEDS: FOLIC ACID 1 MG TABLET PO SCH (09:02)
[2022-05-11] MEDS: MEMANTINE HCL 10 MG TABLET PO SCH ×2 (09:02→16:39)
[2022-05-11] MEDS: THIAMINE HCL 100 MG TABLET PO SCH (09:02)
[2022-05-11] MEDS: BENZTROPINE MESYLATE 0.5 MG TABLET PO SCH ×3 (09:02→16:39)
[2022-05-11] MEDS: DONEPEZIL 10 MG TABLET PO SCH (09:02)
[2022-05-11] MEDS: LORAZEPAM 1 MG TABLET PO SCH (09:02)
[2022-05-11] MEDS: AMLODIPINE 10 MG TABLET PO SCH (09:02)
[2022-05-11] MEDS: DOCUSATE SODIUM 250 MG CAPSULE PO SCH (09:02)
[2022-05-11] MEDS: MULTIVIT, IRON, MIN NO. 8, FA TABLET PO SCH (09:02)
[2022-05-11] MEDS ORDERED: LORAZEPAM 1 MG TABLET PO SCH (13:00)
[2022-05-11] MEDS: LORAZEPAM 0.5 MG TABLET PO SCH ×2 (13:34→16:39)
--- NOTE | 2022-05-11 15:45 | NUR ---
Received patient awake in the hallway. Patient is withdrawn, isolative, low energy, quiet, confused at times, disheveled appearance. Patient is A/O X 2 to person, place. Patient is cooperative with care and compliant with medications. Reassurance given. Fall and safety precautions implemented.
[2022-05-11 16:00] VITALS: BP 148/88
[2022-05-11 20:43] VITALS: BP 135/71
--- NOTE | 2022-05-11 21:17 | NUR ---
Received patient in his room in bed. he is noted awake A/O x 1 TO 2. he needs assistance with some ADLs. Patient is noted isolative and withdrawn, he is a poor historian. he is tangental and forgetful. he stated, "I am in [place]". but he is unable to say the reason for his admission to [facility] or a plan for self care. All his needs were met. He was taken to the bathroom and he had a large BM. patient requires reality orientation. he is reassured for his safety, safety and fall precautions are in place. patient was given PO FLUIDS AND SNACKS, his V/S are stable. will continue to monitor.
[2022-05-12 07:42] VITALS: BP 105/44
[2022-05-12] MEDS: BENZTROPINE MESYLATE 0.5 MG TABLET PO SCH ×3 (08:37→16:10)
[2022-05-12] MEDS: risperiDONE 2 MG TABLET PO SCH ×3 (08:37→20:58)
[2022-05-12] MEDS: AMLODIPINE 10 MG TABLET PO SCH (08:38)
[2022-05-12] MEDS: GABAPENTIN 300 MG CAPSULE PO SCH ×4 (08:38→20:58)
[2022-05-12] MEDS: levETIRAcetam 500 MG TABLET PO SCH ×2 (08:38→20:57)
[2022-05-12] MEDS: FOLIC ACID 1 MG TABLET PO SCH (08:39)
[2022-05-12] MEDS: MULTIVIT, IRON, MIN NO. 8, FA TABLET PO SCH (08:39)
[2022-05-12] MEDS: MEMANTINE HCL 10 MG TABLET PO SCH ×2 (08:39→16:10)
[2022-05-12] MEDS: DOCUSATE SODIUM 250 MG CAPSULE PO SCH (08:39)
[2022-05-12] MEDS: LORAZEPAM 0.5 MG TABLET PO SCH ×3 (08:43→16:10)
[2022-05-12] MEDS: THIAMINE HCL 100 MG TABLET PO SCH (08:44)
--- NOTE | 2022-05-12 14:37 | NUR ---
patient confused,disoriented and disorganized. Poor insight to present situation and poor judgement Has labile mood. Easily get irritable when approached . compliant with all medication and care asleep most of shift refused to attend in group activity ,will continue close monitoring.
[2022-05-12 17:00] VITALS: BP 110/48
[2022-05-12] MEDS: PROTEIN SUPPLEMENT (PROSTAT) 30 ML LIQUID PO SCH (17:00)
[2022-05-12 19:51] VITALS: BP 123/46
[2022-05-12] MEDS: LORAZEPAM 0.5 MG TABLET PO PRN (20:59)
[2022-05-13] MEDS: TEMAZEPAM 7.5 MG CAPSULE PO PRN ×2 (02:15→23:29)
[2022-05-13 07:48] VITALS: BP 131/71
[2022-05-13] MEDS: FOLIC ACID 1 MG TABLET PO SCH (08:21)
[2022-05-13] MEDS: levETIRAcetam 500 MG TABLET PO SCH ×2 (08:21→20:35)
[2022-05-13] MEDS: MEMANTINE HCL 10 MG TABLET PO SCH ×2 (08:21→17:37)
[2022-05-13] MEDS: DOCUSATE SODIUM 250 MG CAPSULE PO SCH (08:22)
[2022-05-13] MEDS: MULTIVIT, IRON, MIN NO. 8, FA TABLET PO SCH (08:22)
[2022-05-13] MEDS: AMLODIPINE 10 MG TABLET PO SCH (08:22)
[2022-05-13] MEDS: BENZTROPINE MESYLATE 0.5 MG TABLET PO SCH ×3 (08:22→17:37)
[2022-05-13] MEDS: LORAZEPAM 0.5 MG TABLET PO SCH ×3 (08:22→17:37)
[2022-05-13] MEDS: GABAPENTIN 300 MG CAPSULE PO SCH ×4 (08:22→20:36)
[2022-05-13] MEDS: THIAMINE HCL 100 MG TABLET PO SCH (08:22)
[2022-05-13] MEDS: PROTEIN SUPPLEMENT (PROSTAT) 30 ML LIQUID PO SCH ×2 (08:24→17:00)
[2022-05-13] MEDS: risperiDONE 2 MG TABLET PO SCH ×4 (08:24→20:35)
[2022-05-13 16:31] VITALS: BP 147/76
[2022-05-14 08:04] VITALS: BP 129/71
[2022-05-14] MEDS: FOLIC ACID 1 MG TABLET PO SCH (08:58)
[2022-05-14] MEDS: GABAPENTIN 300 MG CAPSULE PO SCH ×4 (08:58→21:06)
[2022-05-14] MEDS: LORAZEPAM 0.5 MG TABLET PO SCH ×3 (08:58→17:43)
[2022-05-14] MEDS: AMLODIPINE 10 MG TABLET PO SCH (08:58)
[2022-05-14] MEDS: BENZTROPINE MESYLATE 0.5 MG TABLET PO SCH ×3 (08:59→17:12)
[2022-05-14] MEDS: risperiDONE 2 MG TABLET PO SCH ×3 (08:59→21:06)
[2022-05-14] MEDS: levETIRAcetam 500 MG TABLET PO SCH ×2 (08:59→21:07)
[2022-05-14] MEDS: MULTIVIT, IRON, MIN NO. 8, FA TABLET PO SCH (09:02)
[2022-05-14] MEDS: DOCUSATE SODIUM 250 MG CAPSULE PO SCH (09:02)
[2022-05-14] MEDS: MEMANTINE HCL 10 MG TABLET PO SCH ×2 (09:02→17:12)
[2022-05-14] MEDS: PROTEIN SUPPLEMENT (PROSTAT) 30 ML LIQUID PO SCH ×2 (09:03→17:43)
[2022-05-14] MEDS: THIAMINE HCL 100 MG TABLET PO SCH (09:04)
[2022-05-14 16:06] VITALS: BP 149/79
[2022-05-14 20:22] VITALS: BP 131/68
--- NOTE | 2022-05-14 20:30 | NUR ---
received patient in his room sitting in his bed. He is noted A/O x1 to 2. he is noted with disorganized speech, labile. his affect is blunted with poor eye contact. he has poor insight and judgment into his admission to MHU. patient is somewhat redirectable. Patient was given PO fluids and snacks. he is reassured for his safety. safety and fall precautions are in place. V/S stable. will continue to monitor.
[2022-05-15] MEDS: TEMAZEPAM 7.5 MG CAPSULE PO PRN (01:50)
[2022-05-15 08:42] VITALS: BP 96/60
[2022-05-15] MEDS: AMLODIPINE 10 MG TABLET PO SCH (09:00)
[2022-05-15] MEDS: LORAZEPAM 0.5 MG TABLET PO SCH ×3 (09:11→17:17)
[2022-05-15] MEDS: DOCUSATE SODIUM 250 MG CAPSULE PO SCH (09:11)
[2022-05-15] MEDS: MULTIVIT, IRON, MIN NO. 8, FA TABLET PO SCH (09:11)
[2022-05-15] MEDS: levETIRAcetam 500 MG TABLET PO SCH ×2 (09:13→21:09)
[2022-05-15] MEDS: BENZTROPINE MESYLATE 0.5 MG TABLET PO SCH ×3 (09:13→17:18)
[2022-05-15] MEDS: GABAPENTIN 300 MG CAPSULE PO SCH ×4 (09:13→21:10)
[2022-05-15] MEDS: THIAMINE HCL 100 MG TABLET PO SCH (09:13)
[2022-05-15] MEDS: risperiDONE 2 MG TABLET PO SCH ×3 (09:13→21:09)
[2022-05-15] MEDS: FOLIC ACID 1 MG TABLET PO SCH (09:13)
[2022-05-15] MEDS: MEMANTINE HCL 10 MG TABLET PO SCH ×2 (09:15→17:18)
[2022-05-15] MEDS: PROTEIN SUPPLEMENT (PROSTAT) 30 ML LIQUID PO SCH ×2 (09:15→17:19)
--- NOTE | 2022-05-15 11:40 | NUR ---
SW Facility Contact MITCHEL called and spoke with Yovanny ([phone]) in school suspension coordinator with [facility] to follow-up on referral. Per request, MITCHEL faxed updated MD progress notes for review.
--- NOTE | 2022-05-15 14:58 | NUR ---
Received Patient is awake and responding to his name, isolative and withdrawn in his room, depressed mood and withdrawn affect, need prompting to be compliant with ADL's, compliant with his medications, low energy level, but patient believes that he is getting better, unable to formulate a viable plan for self care, continue to monitor for safety, denies SI/HI, continue with treatment plan.
[2022-05-15 16:14] VITALS: BP 130/73
[2022-05-15] MEDS: TEMAZEPAM 7.5 MG CAPSULE PO SCH (21:09)
[2022-05-15 21:32] VITALS: BP 126/76
--- NOTE | 2022-05-16 01:46 | NUR ---
Received patient in his room sitting in his bed. He is noted A/O x1 he is labile but he is redirectable. Patient noted with poor insight and judgment into his admission to [facility]. Patient was given PO fluids and snacks. he is reassured for his safety. safety and fall precautions are in place. V/S stable. will continue to monitor.
[2022-05-16 07:30] VITALS: BP 135/72
[2022-05-16] MEDS: levETIRAcetam 500 MG TABLET PO SCH ×2 (08:49→20:23)
[2022-05-16] MEDS: LORAZEPAM 0.5 MG TABLET PO SCH ×3 (08:50→17:43)
[2022-05-16] MEDS: THIAMINE HCL 100 MG TABLET PO SCH (08:50)
[2022-05-16] MEDS: AMLODIPINE 10 MG TABLET PO SCH (08:50)
[2022-05-16] MEDS: risperiDONE 2 MG TABLET PO SCH ×4 (08:50→20:23)
[2022-05-16] MEDS: GABAPENTIN 300 MG CAPSULE PO SCH ×4 (08:50→20:23)
[2022-05-16] MEDS: PROTEIN SUPPLEMENT (PROSTAT) 30 ML LIQUID PO SCH ×2 (08:51→17:44)
[2022-05-16] MEDS: FOLIC ACID 1 MG TABLET PO SCH (08:51)
[2022-05-16] MEDS: DOCUSATE SODIUM 250 MG CAPSULE PO SCH (08:51)
[2022-05-16] MEDS: MULTIVIT, IRON, MIN NO. 8, FA TABLET PO SCH (08:51)
[2022-05-16] MEDS: BENZTROPINE MESYLATE 0.5 MG TABLET PO SCH ×3 (08:51→17:43)
[2022-05-16] MEDS: MEMANTINE HCL 10 MG TABLET PO SCH ×2 (08:51→17:43)
--- NOTE | 2022-05-16 11:10 | NUR ---
MITCHEL Discharge Plan Update: Received call from Yovanny ([phone]) preventive maintenance coordinator with [facility] informing they are unable to accept pt. MITCHEL faxed patient's referral packet to [facility] [address] [place] [address] (phone: [phone], fax: [phone]) attention to [facility] for review.
[2022-05-16 11:19] LABS: CREATININE 0.8 mg/dL (0.6-1.3); MAGNESIUM 1.8 mg/dL (1.8-2.4); PHOSPHOROUS 3.9 mg/dL (2.5-4.9); URIC ACID 4.8 mg/dL (3.5-7.2)
[2022-05-16 11:49] LABS: THYROID STIMULATING HORMONE 0.62 mIU/mL (0.358-3.740)
--- NOTE | 2022-05-16 12:12 | NUR ---
MITCHEL Discharge Plan Update: MITCHEL received call from [facility] informing [facility] had referred pt. MITCHEL faxed patient's referral packet to [facility] [address] [place] [address] (phone: [phone], fax: [phone]) for review.
--- NOTE | 2022-05-16 13:14 | NUR ---
SNF Referral: SW faxed patient's referral packet including: History and Physical, Consultation, Progress Notes, Medication List and Labs to the following facility for review and possible fci placement: [facility] [address] [place] [address] (p: [phone], f: [phone]) attn: Yessenia christianson [facility] [address] [place] [address] (p: [phone], f: [phone]).
--- NOTE | 2022-05-16 13:21 | NUR ---
SW Discharge Plan Update: Received call from Brenda eduardo with [facility] [address] [facility], [place] [address] ([phone]) informing they are unable to accept pt due to behavior.
--- NOTE | 2022-05-16 13:25 | NUR ---
SNF Referral: SW faxed patient's referral packet including: History and Physical, Consultation, Progress Notes, Medication List and Labs to the following facility for review and possible mcfp placement: [facility] [address], [address], [place] (p: [phone], f: [phone]) attn: TALIA.
--- NOTE | 2022-05-16 15:12 | NUR ---
SW Discharge Plan Update: SW received call from Claire, fitness plan coordinator with [facility] [address] [facility], [place] [address] (p: [phone], f: [phone]) informing they are unable to accept pt.
--- NOTE | 2022-05-16 15:48 | NUR ---
Received patient awake in his room. A/O X 2 to person. Patient is disorganized, confused, disoriented, trying to eat soap, deodorant, and mouth wash, compliant with medications. Reassurance given. Fall and safety precautions implemented.
[2022-05-16 15:59] VITALS: BP 136/74
--- NOTE | 2022-05-16 16:35 | NUR ---
SW Discharge Update: SW received call from alesha Casas with [address] [address] (p: [phone], f: [phone]) informing they are unable to accept pt.
[2022-05-16 20:07] VITALS: BP 126/65
[2022-05-16] MEDS: TEMAZEPAM 7.5 MG CAPSULE PO SCH (20:33)
--- NOTE | 2022-05-16 21:25 | NUR ---
GPS: Pt.remains confused,disoriented and disorganized. Has poor insight to his mental illness and situation. Easily irritable at times when being re-directed. Med.compliant. Monitored for behavior of drinking soap/lotion. No episodes noted tonight. Safety emphasized. Will continue to monitor.
[2022-05-16] MEDS: TEMAZEPAM 7.5 MG CAPSULE PO PRN (21:45)
--- NOTE | 2022-05-17 00:29 | NUR ---
GPS: Pt.was observed to be getting food from the trash. Discouraged from doing so. Also asking staff to buy him a beer from the store. Re-directed prn. Pt.is confused,disoriented and disorganized. Reality re-orientation provided. Unit rules explained again to pt. Encouraged to try to go back to sleep. Sleeping pill given earlier with minimal effect. Safe environment provided.
--- NOTE | 2022-05-17 06:14 | NUR ---
GPS: Pt.slept poorly last night ( 2 hrs.). Anxious,confused,disoriented and disorganized. Irritable at times during the night when being re-directed. Reality re-orientation provided. Safe environment provided. Sleeping pill given x2 with minimal effect. Will continue to monitor.
[2022-05-17 07:30] VITALS: BP 126/71
[2022-05-17] MEDS: GABAPENTIN 300 MG CAPSULE PO SCH ×4 (08:55→20:35)
[2022-05-17] MEDS: DOCUSATE SODIUM 250 MG CAPSULE PO SCH (08:55)
[2022-05-17] MEDS: levETIRAcetam 500 MG TABLET PO SCH ×2 (08:55→20:32)
[2022-05-17] MEDS: BENZTROPINE MESYLATE 0.5 MG TABLET PO SCH ×3 (08:55→17:31)
[2022-05-17] MEDS: LORAZEPAM 0.5 MG TABLET PO SCH ×3 (08:56→17:31)
[2022-05-17] MEDS: MEMANTINE HCL 10 MG TABLET PO SCH ×2 (08:56→17:30)
[2022-05-17] MEDS: THIAMINE HCL 100 MG TABLET PO SCH (08:56)
[2022-05-17] MEDS: AMLODIPINE 10 MG TABLET PO SCH (08:56)
[2022-05-17] MEDS: FOLIC ACID 1 MG TABLET PO SCH (08:56)
[2022-05-17] MEDS: MULTIVIT, IRON, MIN NO. 8, FA TABLET PO SCH (08:56)
[2022-05-17] MEDS: risperiDONE 2 MG TABLET PO SCH ×4 (08:56→20:32)
[2022-05-17] MEDS: PROTEIN SUPPLEMENT (PROSTAT) 30 ML LIQUID PO SCH ×2 (08:57→17:32)
[2022-05-17 10:37] LABS: HEMATOCRIT 37.4 % (36.7-47.1); MEAN CORPUSCULAR HEMOGLOBIN 30.9 uug (23.8-33.4); MEAN CORPUSCULAR VOLUME 91.9 fL (73.0-96.2); PLATELET COUNT (AUTO) 244 K/uL (152-348)
--- NOTE | 2022-05-17 10:57 | NUR ---
SNF Referral: SW faxed patient's referral packet including: History and Physical, Consultation, Progress Notes, Medication List and Labs to the following facility for review and possible mcfp placement: [facility] [address] [place] [address] (p: [phone], f: [phone]) attn: Mona.
[2022-05-17 11:02] LABS: BILIRUBIN,TOTAL 0.2 mg/dL (0.2-1.0); CREATININE 0.7 mg/dL (0.6-1.3); POTASSIUM 3.9 mmol/L (3.5-5.1); TOTAL PROTEIN, SERUM 7.9 g/dL (6.4-8.2)
[2022-05-17] MEDS: GLUCERNA SHAKE 237 ML CAN PO SCH ×2 (13:16→17:32)
--- NOTE | 2022-05-17 14:47 | NUR ---
Received patient awake in his room. Patient is A/O X 2 to person. Patient is disoriented, confused at times, withdrawn, poor safety awareness, disheveled, compliant with medications. Patient looks for deodorants, mouth wash, and soap to put in his water. Patient is encourage to vent feelings and emotions. Fall and safety precautions implemented.
--- NOTE | 2022-05-17 15:57 | NUR ---
MITCHEL Discharge Update: MITCHEL spoke with Mona at [facility] on [facility] [address] [place] [address] (p: [phone], f: [phone]) who stated that pt is accepted to their facility upon discharge.
[2022-05-17 16:17] VITALS: BP 118/74
[2022-05-17 20:16] VITALS: BP 130/70
[2022-05-17] MEDS: TEMAZEPAM 7.5 MG CAPSULE PO SCH (20:32)
--- NOTE | 2022-05-18 02:53 | NUR ---
Patient continues to be confused, uncooperative, and impulsive. Requires redirection and reorientation on a frequent basis. Medication compliant, but still digs in the trash and goes into other people's rooms on a zhao for hygiene products to consume orally. Safety strategies remain in place. Monitoring the patient's actions closely.
[2022-05-18 07:46] VITALS: BP 140/77
[2022-05-18] MEDS: BENZTROPINE MESYLATE 0.5 MG TABLET PO SCH ×3 (09:51→17:00)
[2022-05-18] MEDS: FOLIC ACID 1 MG TABLET PO SCH (09:51)
[2022-05-18] MEDS: DOCUSATE SODIUM 250 MG CAPSULE PO SCH (09:51)
[2022-05-18] MEDS: GLUCERNA SHAKE 237 ML CAN PO SCH ×2 (09:51→17:01)
[2022-05-18] MEDS: LORAZEPAM 0.5 MG TABLET PO SCH ×3 (09:51→17:00)
[2022-05-18] MEDS: risperiDONE 2 MG TABLET PO SCH ×4 (09:52→20:40)
[2022-05-18] MEDS: levETIRAcetam 500 MG TABLET PO SCH ×2 (09:52→20:40)
[2022-05-18] MEDS: AMLODIPINE 10 MG TABLET PO SCH (09:52)
[2022-05-18] MEDS: PROTEIN SUPPLEMENT (PROSTAT) 30 ML LIQUID PO SCH ×2 (09:52→17:01)
[2022-05-18] MEDS: GABAPENTIN 300 MG CAPSULE PO SCH ×4 (09:52→20:40)
[2022-05-18] MEDS: MULTIVIT, IRON, MIN NO. 8, FA TABLET PO SCH (09:58)
[2022-05-18] MEDS: THIAMINE HCL 100 MG TABLET PO SCH (09:59)
[2022-05-18] MEDS: MEMANTINE HCL 10 MG TABLET PO SCH ×2 (09:59→17:00)
--- NOTE | 2022-05-18 16:18 | NUR ---
MITCHEL Family Contact: MITCHEL contacted pt's sister, Cristela ([phone]) and left a voicemail regarding pts discharge details.
[2022-05-18 17:19] VITALS: BP 103/58
[2022-05-18 20:03] VITALS: BP 136/70
[2022-05-18] MEDS: TEMAZEPAM 7.5 MG CAPSULE PO SCH (20:40)
[2022-05-18] MEDS: TEMAZEPAM 7.5 MG CAPSULE PO PRN (23:21)
[2022-05-19 07:30] VITALS: BP 139/68
[2022-05-19] MEDS: levETIRAcetam 500 MG TABLET PO SCH (08:58)
[2022-05-19] MEDS: MULTIVIT, IRON, MIN NO. 8, FA TABLET PO SCH (08:58)
[2022-05-19] MEDS: MEMANTINE HCL 10 MG TABLET PO SCH (08:58)
[2022-05-19] MEDS: GLUCERNA SHAKE 237 ML CAN PO SCH (08:58)
[2022-05-19] MEDS: THIAMINE HCL 100 MG TABLET PO SCH (08:59)
[2022-05-19] MEDS: risperiDONE 2 MG TABLET PO SCH (08:59)
[2022-05-19] MEDS: DOCUSATE SODIUM 250 MG CAPSULE PO SCH (08:59)
[2022-05-19 09:00] VITALS: BP 139/68
[2022-05-19] MEDS: LORAZEPAM 0.5 MG TABLET PO SCH (09:00)
[2022-05-19] MEDS: GABAPENTIN 300 MG CAPSULE PO SCH (09:00)
[2022-05-19] MEDS: AMLODIPINE 10 MG TABLET PO SCH (09:00)
[2022-05-19] MEDS: BENZTROPINE MESYLATE 0.5 MG TABLET PO SCH (09:00)
[2022-05-19] MEDS: PROTEIN SUPPLEMENT (PROSTAT) 30 ML LIQUID PO SCH (09:02)
[2022-05-19] MEDS: FOLIC ACID 1 MG TABLET PO SCH (09:02)
--- NOTE | 2022-05-19 09:12 | NUR ---
MITCHEL Discharge Note: Pt will be discharged to [facility] ([phone]) located at [address] [place] [address] via Ambulance transportation at 11AM. MITCHEL spoke with admin coordinator, Mona at the facility who states they are ready to accept the patient today. Pt is aware and agreeable with discharge plan. MITCHEL left a voicemail for pts sister, Cristela ([phone]) regarding pts discharge details. Pt is alert and oriented x3, is unable to plan for self-care at this time. However, pt is willing to accept care at SNF. Pt denies any suicidal or homicidal ideation. Pt will follow-up at the facility with Psychiatrist, Dr. Chang and Cyber Reverse Engineer, Dr. Victor. Pt presents with calm mood and congruent affect. PHARMACY: [facility] ([phone]).
--- NOTE | 2022-05-19 11:15 | NUR ---
Discharged patient to [facility] via Ambulance transportation at 1115 am. Pt is alert and oriented x3, is unable to plan for self-care at this time. However, pt is willing to accept care at SNF. Pt denies any suicidal or homicidal ideation. Pt will follow-up at the facility with Psychiatrist, Dr. Chang and Utility Accounts Director. all personal belonging returned to patient , report given to Jennifer CORONEL from [facility].
== END 2022-05-19 11:15 | DRG 885 ==
LOC: ER 05-02 00:04 → GPS 05-02 00:52
PROVIDERS: ADMIT Psychiatry & Neurology Psychiatry; ATTEND Internal Medicine
DX: F31.9 Bipolar disorder, unspecified (principal); E22.2 Syndrome of inappropriate secretion of antidiuretic hormone; G40.909 Epilepsy, unspecified, not intractable, without status epilepticus; Z20.822 Contact with and (suspected) exposure to COVID-19; F41.9 Anxiety disorder, unspecified; J44.9 Chronic obstructive pulmonary disease, unspecified; F39 Unspecified mood [affective] disorder; F29 Unspecified psychosis not due to a substance or known physiological condition; F03.90 Unspecified dementia, unspecified severity, without behavioral disturbance, psychotic disturbance, mood disturbance, and anxiety; I11.9 Hypertensive heart disease without heart failure; R73.9 Hyperglycemia, unspecified; K70.30 Alcoholic cirrhosis of liver without ascites; E66.9 Obesity, unspecified; Z68.26 Body mass index [BMI] 26.0-26.9, adult; R13.10 Dysphagia, unspecified; R53.1 Weakness; F19.10 Other psychoactive substance abuse, uncomplicated; Z79.899 Other long term (current) drug therapy
CPT/HCPCS: 36415; 80299; 83735; 84100; 84443; 84550; 85025; 93005; A4663; G0480